=== PATIENT | female | born 1935 | race Caucasian/White ===

== ENCOUNTER 2017-09-20 11:45 | Inpatient (IN) ==
[2017-09-20] MEDS ORDERED: HYDROmorphone 2 MG/ML VIAL IV SCH (12:00)
[2017-09-20] MEDS ORDERED: HYDROmorphone 2 MG/ML VIAL IV PRN (12:08)
--- NOTE | 2017-09-20 12:21 | Emergency Department Note ---
Fall HPI - General Chief Complaint: Fall Stated Complaint: fall, L hip and wrist pain Source: patient Mode of arrival: wheelchair - History of Present Illness HPI Narrative: Fall from standing position just prior to arrival. Brought in with obvious leg length discrepancy on the left, left arm currently braced. Severe pain, 100 of fentanyl given in route, minimally effective. No loss of consciousness patient states "I just turned wrong in the kitchen". - Related Data Home Medications Medication Instructions Recorded Confirmed calcium carbonate 500 mg calcium 500 mg PO QDAY tab 08/12/15 09/20/17 (1,250 mg) tablet cholecalciferol (vitamin D3) 5,000 5,000 unit PO WEEKLY cap 09/24/15 09/20/17 unit capsule Previous Rx's Medication Instructions Recorded indapamide 2.5 mg tablet 2.5 mg PO QAM #90 tab 08/06/17 simvastatin 40 mg tablet 40 mg PO QPM #90 tab 08/24/17 Allergies Allergy/AdvReac Type Severity Reaction Status Date / Time Calcitonin Allergy Unknown Unknown Verified 09/20/17 11:55 niacin Allergy Unknown Itching Verified 09/20/17 11:55 Review of Systems All systems ED: reviewed and negative except as stated. Fall PMH - Past Medical History Attestation: Yes: The following information was validated with the patient. Medical history: Reports: hypertension Surgical history ED: Reports: other (Bladder surgery) Family history: Reports: non-contributory - Social History smoking status: Never smoker Physical Exam General appearance: in distress Head: atraumatic, normocephalic Eye: Present: normal appearance ENT: normal exam Neck: Present: normal inspection. Absent: tenderness Chest: Present: normal inspection Respiratory: Present: normal lung sounds bilaterally. Absent: respiratory distress Cardiovascular: Present: regular rate, normal rhythm Abdominal: Present: soft Extremities: Present: other (Left wrist splinted, intact distal neurovascular; left leg shortened him a intact neuro vas) Neurological: Present: alert, oriented X3 Psychiatric: Present: normal affect Course Vital Signs Temperature 97.4 F 09/20/17 11:46 Pulse Rate 67 09/20/17 11:46 Respiratory Rate 20 09/20/17 11:46 Pulse Oximetry (%) 100 09/20/17 11:46 Temperature 97.4 F 09/20/17 11:46 Pulse Rate 68 01/29/18 12:01 Respiratory Rate 20 09/20/17 12:00 Blood Pressure 119/102 09/20/17 12:01 Pulse Oximetry (%) 98 09/20/17 12:01 Procedures - Orthopedic Fracture Reduction Fracture #1 Consent Obtained: verbal consent, written consent Time Out Performed: Yes Side: left Fracture Reduction Location: other (Wrist) Analgesia: hematoma block Technique: direct manipulation (Anatomic reduction) Post-reduction neuro exam: intact Post-reduction vascular exam: intact Splint Applied: Yes Patient Tolerated Procedure: well, no complications Fall - Lab Data Result diagrams: 09/20/17 13:27 09/20/17 13:26 Disposition Pt seen by [facility]UFFER/PA only: No Clinical Impression: Colles' fracture of left radius, Hip fracture Disposition: Xfer As Inpt ([facility]) Condition: Fair Referrals: Mavis Crowder DO [Primary Care Provider] -
[2017-09-20] MEDS ORDERED: fentaNYL 100 MCG/2 ML VIAL IV ONE ×2 (13:07→16:05)
[2017-09-20] MEDS ORDERED: MIDAZOLAM 5 MG/5 ML VIAL IV ONE ×2 (13:07→16:05)
--- NOTE | 2017-09-20 13:07 | Cat Scan Report ---
History: Fell with left leg and pelvic pain and leg shortening Findings: The pelvis is imaged without contrast. Sagittal and coronal reformats were created. There is an acute comminuted intertrochanteric fracture of the left hip. There is varus angulation. The femoral neck and head are normal. Joint spaces of both hips are mildly narrowed. There is mild arthritis with subchondral cysts in both hips. These are most apparent above the roof of the right acetabulum. There is no pelvic fracture is present. Grade 1 spondylolisthesis is present at L5-S1 due to arthritis in the facets. There is moderate arthritis at the symphysis pubis. There are a few scattered diverticula in the sigmoid colon. No intrapelvic hematoma is present. The uterus and ovaries are atrophic. Impression: Intertrochanteric fracture of the left hip Dr. Bonds was called with results Interpreted and Authenticated by: Jaun Aguayo 09/20/17
--- NOTE | 2017-09-20 13:09 | XRay Report ---
HISTORY: Reason for Exam:fall, pain FINDINGS: There are acute comminuted fractures of the distal radius and ulna. There is severe deformity. The carpal bones remain aligned with the distal radius and are retracted proximally and angulated in a radial direction. There is significant overlying soft tissue swelling. Moderate arthritis is present between the trapezium and first metacarpal. There is an old ununited fracture the ulnar styloid process. IMPRESSION: Severely deformed Colles' fracture Interpreted and Authenticated by: Jaun Aguayo 09/20/17
--- NOTE | 2017-09-20 13:10 | XRay Report ---
HISTORY: Reason for Exam:Multiple Fractures FINDINGS: The lungs are clear and well expanded. The heart size and pulmonary vasculature are normal. There is no pleural effusion. The aorta is mildly tortuous. No fracture is identified. IMPRESSION: Normal chest Interpreted and Authenticated by: Jaun Aguayo 09/20/17
[2017-09-20] MEDS ORDERED: MIDAZOLAM 2 MG/2 ML VIAL ONE (13:42)
[2017-09-20 14:04] LABS: Basophils # (Auto) 0 K/mcL (0.0-0.3); Basophils % (Auto) 0.3 % (0.0-2.0); Eosinophils # (Auto) 0.3 K/mcL (0.0-0.7); Eosinophils % (Auto) 1.9 % (0.0-7.0); Granulocytes % (Auto) 78.7 % (38.0-78.0); Lymphocytes # (Auto) 1.7 K/mcL (1.5-4.8); Lymphocytes % (Auto) 12.6 % (15.5-49.0); Mean Cell Volume 88.9 fL (80.0-100.0); Mean Corpuscular HGB Conc 34.2 g/dL (31.0-36.0); Mean Corpuscular Hemoglobin 30.4 pg (26.0-34.0); Monocytes # (Auto) 0.9 K/mcL (0.1-0.9); Monocytes % (Auto) 6.5 % (1.0-12.0); Platelet Count 382 K/mcL (140-440); RBC 4.28 M/mcL (4.00-5.20); Red Cell Distribution Width 12.6 % (11.5-14.5)
[2017-09-20 14:31] LABS: ALT/SGPT 14 U/l (0-40); Albumin 3.5 gm/dL (3.2-5.2); Albumin/Globulin Ratio 1.5 (1.0-2.3); Alkaline Phosphatase 63 U/L (39-117); Blood Urea Nitrogen 12 mg/dl (8-23)
[2017-09-20] MEDS ORDERED: ceFAZolin 1 GM VIAL IV SCH (15:45)
[2017-09-20] MEDS ORDERED: DEXAMETHASONE 10 MG/ML VIAL IV ONE (16:05)
[2017-09-20] MEDS ORDERED: ONDANSETRON 4 MG/2 ML VIAL IV ONE (16:05)
[2017-09-20] MEDS ORDERED: PROPOFOL 200 MG/20 ML VIAL IV ONE (16:05)
[2017-09-20] MEDS ORDERED: GLYCOPYRROLATE 0.2 MG/ML VIAL IV ONE (16:05)
[2017-09-20] MEDS ORDERED: LIDOCAINE HCL/PF 100 MG/5 ML SYRINGE IV ONE (16:05)
[2017-09-20] MEDS ORDERED: KETAMINE 100 MG/ML ML IV ONE (16:05)
[2017-09-20] MEDS ORDERED: TRANEXAMIC ACID 1,000 MG/10 ML VIAL IV ONE (16:05)
--- NOTE | 2017-09-20 16:14 | History and Physical Report ---
DATE OF ADMISSION: 09/20/2017 IDENTIFICATION: The patient is an 82-year-old female. CHIEF COMPLAINT: 1. Left comminuted intertrochanteric hip fracture. 2. Extensively comminuted left distal radius fracture. HISTORY: The patient sustained a fall today at home. She had immediate pain and deformity, including the left distal radius and left hip. She presented to the emergency room here at [facility]. Radiographs have demonstrated a comminuted intertrochanteric hip fracture and a comminuted left distal radius fracture. These are both in need of operative treatment, and I am called for definitive management. The hospitalist have also been consulted for medical management. PAST MEDICAL HISTORY: Significant for hypercholesterolemia and hypertension. PAST SURGICAL HISTORY: She apparently had a previous bladder surgery but otherwise fairly unremarkable. MEDICATIONS: Calcium carbonate and vitamin D. ALLERGIES: 1. NIACIN produces itching. 2. CALCITONIN is an allergy that is listed but has an unknown reaction. REVIEW OF SYSTEMS: She has generally been in a good state of health and the balance of the 10-point review of systems is negative. She is scheduled to have a total knee arthroplasty next week. FAMILY HISTORY: Noncontributory. PHYSICAL EXAMINATION: GENERAL: She is awake and alert. She answers questions appropriately. HEAD: Normocephalic, atraumatic. EYES: PERRLA, conjunctiva clear. ENT: Within normal limits. NECK: Supple without pain on range of motion. HEART: Regular. LUNGS: Clear. ABDOMEN: Benign. EXTREMITIES: Left distal radius was splinted and a reduction maneuver was performed in the ER by the emergency room physician. The left lower extremity is shortened and there is malrotation. She is grossly without significant neurovascular deficit. RADIOGRAPHS: Demonstrate again an extensively comminuted fracture of both the left distal radius and the intertrochanteric region of the left hip. IMPRESSION: Fractures as above. PLAN: We will proceed with an open reduction and internal fixation of left hip. I have discussed the distal radius with Dr. Juarez. He will plan to be involved potentially at a later date. This has been discussed with the patient and her family, and they wish to proceed. GDD:sagar Job ID: [id number] Doc ID: [id number] Joshua Knutson MD
[2017-09-20] MEDS ORDERED: PROMETHAZINE 25 MG/ML VIAL IV PRN (16:26)
[2017-09-20] MEDS ORDERED: diphenhydrAMINE 50 MG/ML VIAL IV PRN (16:26)
[2017-09-20] MEDS ORDERED: FLUMAZENIL 0.1 MG/ML ML IV PRN (16:26)
[2017-09-20] MEDS ORDERED: NALOXONE HCL 0.4 MG/ML VIAL IV PRN (16:26)
[2017-09-20] MEDS ORDERED: ONDANSETRON 4 MG/2 ML VIAL IV PRN (16:26)
[2017-09-20] MEDS ORDERED: MEPERIDINE 25 MG/ML SYRINGE IV PRN (16:26)
[2017-09-20] MEDS ORDERED: ePHEDrine 50 MG/ML AMPUL IV PRN (16:26)
[2017-09-20] MEDS ORDERED: ATROPINE SULFATE 0.4 MG/ML VIAL IV PRN (16:26)
[2017-09-20] MEDS ORDERED: IPRATROPIUM/ALBUTEROL 3 ML AMPUL.NEB NEB PRN (16:26)
[2017-09-20] MEDS ORDERED: METHOCARBAMOL 1,000 MG/10 ML VIAL IV PRN (16:26)
[2017-09-20] MEDS ORDERED: fentaNYL 100 MCG/2 ML VIAL IV PRN (16:26)
[2017-09-20] MEDS ORDERED: LACTATED RINGERS 1,000 ML IV SCH (16:30)
--- NOTE | 2017-09-20 17:27 | Orthopedic Procedure Note ---
Date of procedure: Note initiated : 09/20/17 at 5:26 pm Service Date, if different from initiated Date: [] Pre-op diagnosis: L hip fx, L distal radius fx Post-op diagnosis: same Procedure: hip reduction and gamma, distal radius reduction and splint Grafts/Implants: gamma Anesthesia: JVA Surgeon: Joshua Knutson Technical Information Specialist: Gena Goldman Estimated blood loss: 200 Pathology: none sent Condition: stable Disposition: PACU
[2017-09-20] MEDS: 0.9 % SODIUM CHLORIDE 1,000 ML IV SCH ×3 (19:10→23:19)
[2017-09-20] MEDS ORDERED: METHOCARBAMOL 750 MG TABLET PO PRN (21:36)
[2017-09-20] MEDS: ENOXAPARIN 30 MG/0.3 ML SYRINGE SQ SCH (22:08)
[2017-09-20] MEDS: ceFAZolin 1 GM VIAL IV SCH (22:10)
--- NOTE | 2017-09-21 01:02 | Consultation ---
DATE OF CONSULTATION: 09/20/2017 REASON FOR CONSULTATION: Management of medical issues. PRIMARY CARE PHYSICIAN: Lg Arnold MD REASON FOR ADMISSION: Fall with hip fracture. REQUESTING PHYSICIAN: Joshua Knutson MD HISTORY OF CHIEF COMPLAINT: The patient is an 82-year-old who lives with her , Man, and was in her baseline state of health until this morning while she was in the kitchen, for some reason fell backward and landed on the floor. She attributes the fall to getting off balance. She did not lose consciousness. She was discovered by her , who subsequently called 911, and brought into [facility] ER. She was in significant pain around her left hip. She was subsequently evaluated and was found to have an intertrochanteric left hip fracture. She was taken directly to surgery. Post-surgery, hospitalist Service was consulted for management of medical issues. At the time of evaluation, the patient is immediate postop. She is drowsy, lethargic and under the effect of anesthesia. Family members, including granddaughter along with her , present in room. Most of the history was obtained from the medical records, ER physician and from . Per , patient was in her baseline state of health. She did not have any seizure activity or bladder or bowel incontinence. She did not lose consciousness. She was awake throughout the episode, lying on the floor, in pain. She did not have any prior fever, palpitation, lightheadedness, dizziness. She also did not have any recent falls or hospitalization. REVIEW OF SYSTEMS: Ten-point review of systems was performed and negative except the ones discussed above. PAST MEDICAL HISTORY: 1. Hyperlipidemia. 2. Hypertension. SURGICAL HISTORY: History of bladder surgery. FAMILY HISTORY: Noncontributory given advanced age and presenting symptoms. SOCIAL HISTORY: No history of smoking or alcoholism. Lives with her , Man. Independent. PHYSICAL EXAMINATION: GENERAL: The patient is fairly fatigued, lethargic, under the effect of anesthesia, sedated. VITAL SIGNS: Blood pressure 135/89, respiratory rate 16, temperature 97.9, pulse 89, sats 99% on 2 liters of oxygen. HEENT: Pupils sluttish. Oral cavity is dry. No ear or nose discharge. Head is normocephalic and atraumatic. NECK: No lymphadenopathy. CHEST: S1, S2, regular rhythm. ESM grade 1. Diminished breath sounds at bases. ABDOMEN: Soft. LOWER EXTREMITIES: Left hip postop dressing. UPPER EXTREMITIES: Left wrist currently in cast. SKIN: No suspicious lesions. PSYCH: Sedated, under the effect of anesthesia. NEURO: Could not be performed. LABS AND IMAGING: White count 13.7, hemoglobin 13, INR 1. Sodium 130, potassium 3.3, creatinine 0.3, BUN 12. EKG: Sinus rhythm. CT hip: Left intertrochanteric fracture. X-ray wrist: Severely deformed left Colles fracture. X-ray chest: Normal. ASSESSMENT AND PLAN: An 82-year-old admitted by orthopedics for left hip repair and left wrist fracture. Hospitalist service consulted for management of medical issues. 1. Left hip and left wrist fracture, status post surgery and reduction. The patient will be managed as per orthopedics. Postop care including pain management and deep venous thrombosis prophylaxis per orthopedics. 2. History of hypertension. Continue indapamide 3. History of hyperlipidemia. Continue statin. PLAN: 1. Continue medical management as above. 2. Postoperative care and DVT prophylaxis/pain management as per orthopedics. Moderate complexity consult. AA:dinh Job ID: [id number] Doc ID: [id number] Yannick Lujan MD
[2017-09-21] MEDS: ceFAZolin 1 GM VIAL IV SCH ×3 (06:02→21:20)
--- NOTE | 2017-09-21 07:19 | Orthopedic Progress Note ---
Subjective Patient information: Note initiated : 09/21/17 at 7:17 am Service Date, if different from initiated Date: [] Patient: Kateryna Oconnor 82 y/o F admitted on 09/20/17 for Fall, Lt Hip/Wrist Pain. Chief Complaint: [S/P ORIF of left hip, left displaced and angulated distal radius fx with reduction and splinting] Patient is doing well and really has no complaints other than mild left wrist pain. She denies any SOA, chest pain, or calf tenderness. She has no ambulated since sx. Objective Vital signs: Vital Signs Temp Pulse Pulse Resp BP BP Pulse Ox 09/21/17 04:00 98.1 F 85 12 119/71 96 09/21/17 00:00 97.6 F 96 H 14 106/67 96 09/20/17 21:19 98.0 F 86 16 109/68 93 09/20/17 20:20 93 H 110/55 95 09/20/17 20:13 95 09/20/17 19:50 87 110/52 96 09/20/17 19:19 83 112/70 96 09/20/17 19:04 83 113/72 97 09/20/17 18:49 81 118/75 98 09/20/17 18:34 79 116/72 98 09/20/17 18:25 97.9 F 89 16 135/89 99 09/20/17 18:20 90 125/65 98 09/20/17 17:55 97.9 F 85 16 135/89 100 09/20/17 17:50 97.9 F 86 16 140/56 95 09/20/17 17:40 97.9 F 91 H 16 99/64 91 09/20/17 14:20 66 121/76 97 09/20/17 12:01 68 119/102 98 09/20/17 12:00 20 09/20/17 11:59 68 107/76 93 09/20/17 11:46 97.4 F 67 20 100 Intake and Output 09/20/17 09/21/17 09/21/17 21:59 05:59 13:59 Intake Total 2800 / 2800 150 / 150 Output Total 350 / 350 725 / 725 Balance 2450 / 2450 -575 / -575 Intake: Oral 150 / 150 IV - Manual Only 2800 / 2800 Output: Urine Catheter Amount 575 / 575 Void Amount 350 / 350 150 / 150 Other: Weight 120 lb 4.8 oz Intake & Output: Intake & Output 09/20/17 09/21/17 09/21/17 21:59 05:59 13:59 Intake Total 2800 / 2800 150 / 150 Output Total 350 / 350 725 / 725 Balance 2450 / 2450 -575 / -575 Weight 120 lb 4.8 oz Intake: Oral 150 / 150 IV - Manual Only 2800 / 2800 Output: Urine Catheter Amount 575 / 575 Void Amount 350 / 350 150 / 150 Incision: Yes healing, Yes clean and dry Incision clean and dry: Yes Dressing: Yes clean, Yes dry, Yes intact Weight bearing status: non (TTWB on LLE) Neurological exam IM: Yes oriented X3, Yes motor sensory intact, Yes neurovascular intact Extremities exam IM: Yes normal inspection, Yes Foot pink and warm, Yes neurovascular intact - Labs CBC & BMP: 09/20/17 13:27 09/20/17 13:26 Labs: Orthopedic Labs 09/20/17 13:27 PT 14.1 INR 1.1 09/20/17 13:27 Hgb 13.0 Hct 38.0 Assessment and Plan (1) Colles' fracture of left radius Remain in splint until ORIF of left wrist with Dr. Juarez. Continue neurovascular checks on LUE. Status: Acute (2) Hip fracture TTWB on LLE. May be up with PT and utilize wheelchair. Status: Acute
--- NOTE | 2017-09-21 07:36 | Operative Note ---
DATE OF OPERATION: 09/20/2017 PREOPERATIVE DIAGNOSES: 1. Left intertrochanteric hip fracture. 2. Left distal radius fracture, both with marked comminution. POSTOPERATIVE DIAGNOSES: 1. Left intertrochanteric hip fracture. 2. Left distal radius fracture, both with marked comminution. OPERATION PROPOSED: 1. Reduction and internal fixation left intertrochanteric hip fracture. 2. Closed reduction and splinting left distal radius fracture. OPERATION PERFORMED: 1. Reduction and internal fixation left intertrochanteric hip fracture. 2. Closed reduction and splinting left distal radius fracture. OPERATING SURGEON: Joshua Knutson MD TALKBACK HOST: Gena Goldman PA-C INDICATIONS: This is an elderly lady who has an intertrochanteric hip fracture which was markedly displaced in need of operative fixation. She also has a distal radius fracture which is very markedly displaced and comminuted. A reduction maneuver was performed by the ER physician, but no post-reduction x-rays obtained. Post-reduction radiographs in the operating room while in the ER splint show suboptimal reduction. OPERATION IN DETAIL: Informed consent was obtained. The patient was taken to the operating room where she was provided with appropriate anesthetic and prophylactic antibiotics. She was carefully positioned. The C-arm was brought in and I imaged her left distal radius. It was felt to be in a suboptimal position for splinting. As such, the splint was removed. The best possible reduction was obtained and a sugar tong splint applied. I have discussed this with Dr. Juarez. There is consideration for additional open reduction and internal fixation. Attention was then turned to the left hip. She was placed on the fracture table. The hip was reduced. An incision was made proximal to the tip of the greater trochanter. I entered the tip of the greater trochanter with a 3.2 mm guidewire and advanced this antegrade into the femoral shaft. I then used the opening reamer. A long guidewire was applied and I reamed the canal to a size 12 mm. I selected a long gamma nail, 10 mm in diameter. This was advanced into the femoral shaft. I then reamed the lateral cortex with a drill, I advanced a 3.2 mm guidewire retrograde across the fracture and then reamed and placed hip bolt. I did compress slightly, I activated the locking bolt, locking this into position. I then placed perfect circles distally in the femoral shaft. A locking screw was applied. The wounds were irrigated thoroughly and I closed with an 0 Vicryl in interrupted fashion, 2-0 Vicryl inverted deep dermal, and brendan. The procedure was tolerated well. No complications. Estimated blood loss 200 mL. GDD:kristen Job ID: [id number] Doc ID: [id number] Joshua Knutson MD
[2017-09-21] MEDS: ENOXAPARIN 30 MG/0.3 ML SYRINGE SQ SCH ×2 (09:20→21:18)
[2017-09-21 10:12] LABS: Mean Corpuscular HGB Conc 33.8 g/dL (31.0-36.0); Mean Corpuscular Hemoglobin 30.4 pg (26.0-34.0); Platelet Count 370 K/mcL (140-440); RBC 3.96 M/mcL (4.00-5.20); Red Cell Distribution Width 12.3 % (11.5-14.5)
[2017-09-21 10:47] LABS: Band Neutrophils % 1 % (0-10); Lymphocytes % 10 % (15-49); Monocytes % (Manual) 6 % (1-12); Platelet Estimate NORMAL (NORMAL); RBC Morphology NORMAL (NORMAL); Segmented Neutrophils % 83 % (38-78)
[2017-09-21 10:50] LABS: Blood Urea Nitrogen 9 mg/dl (8-23); Uric Acid 4.8 mg/dL (2.5-8.0)
[2017-09-21 10:51] LABS: ALT/SGPT 13 U/l (0-40); Albumin 3.4 gm/dL (3.2-5.2); Albumin/Globulin Ratio 1.4 (1.0-2.3); Alkaline Phosphatase 57 U/L (39-117); Bilirubin,Direct < 0.2 mg/dL (0.0-0.3); Gamma Glutamyl Transpeptidase 10 U/L (5-36)
[2017-09-21] MEDS: 0.9 % SODIUM CHLORIDE 1,000 ML IV SCH (15:18)
[2017-09-21] MEDS: HYDROCODONE/APAP 7.5/325MG TABLET PO PRN (18:48)
--- NOTE | 2017-09-21 19:48 | Consultation ---
DATE OF CONSULTATION: 09/21/2017 DATE OF EVALUATION AND DICTATION: 09/21/2017 REFERRING PHYSICIAN: Joshua Knutson MD CHIEF COMPLAINT: Left wrist pain, swelling, loss of motion and function. HISTORY: The patient is an 82-year-old, [id number] white female who several days ago sustained a fall, landing on her left side with pain, swelling, loss of motion in her hip and her wrist. The patient was diagnosed with a distal radius fracture on the left and a hip fracture. The patient has subsequently undergone an open reduction and internal fixation of the left hip fracture and a closed reduction and splinting of the left wrist fracture, but with continued pain, loss of motion and function. PAST MEDICAL HISTORY: Significant for benign paroxysmal positional vertigo, dyspnea, esophageal stricture, fibrocystic breast disease, hyperlipidemia, hypertension, leukocytosis, osteoporosis, and thrombocytosis. PAST SURGICAL HISTORY: The patient is status post a bladder surgery, colonoscopy, and an open reduction and internal fixation of the left hip fracture. MEDICATIONS: Calcium carbonate 500 mg daily. Calciferol 12,000 units by mouth weekly. Indapamide 2.5 mg daily. Simvastatin 40 mg daily. ALLERGIES: The patient has allergies to CALCITONIN and NIACIN. SOCIAL HISTORY: Presently the patient is retired but enjoys home activities and hobbies and lives independently with her . REVIEW OF SYSTEMS: Presently the patient denies any headaches, no vision changes, no nausea, vomiting, fevers, chills, no shortness of breath, no wheezing, no chest pain, no abdominal pain, no abnormal bruising or bleeding, and no blood in the urine or blood in the stool. PHYSICAL EXAMINATION: VITAL SIGNS: Include a pulse of 85 that is regular, respiratory rate 12, blood pressure 119/71 and a temperature of 98.1 degrees. SKIN: Her bilateral upper extremities do not demonstrate any skin breakdown, macerations, lacerations, ulcers, or lesions. She does demonstrate significant ecchymosis and edema on the volar and dorsal aspect of the wrist, but no open wounds or lesions noted. EXTREMITIES: Her left upper extremity demonstrates a shoulder and elbow without any deformities. She has elbow flexion from 0 to 145 degrees. No instability with varus or valgus stressing at 0 or 30 degrees of flexion. Negative Tinel's at the cubital tunnel. She has limited range of motion of the wrist with a splint intact. Her fingers have good capillary refill and respond to light touch and able to actively flex and extend all of her fingers and her thumb. Her right upper extremity demonstrates shoulder, elbow, wrist, and hand without any deformities and nontender to palpation, full range of motion, and neurovascularly intact distally. GAIT: The patient is nonambulatory secondary to her left hip fracture. IMAGING: Plain radiographs, AP, lateral, and oblique views, of the left wrist, interpreted by myself, demonstrate a comminuted intra-articular distal radial metaphyseal fracture with significant apex volar angulation and collapse with the articular surface reduced at the distal radius and with subluxation volarly of the distal radial ulnar joint. ASSESSMENT: The patient is status post a fall onto her left wrist and hip, now with a comminuted intra-articular distal radial metaphyseal fracture with improved alignment but significant comminution, demonstrating an unstable fracture pattern. RECOMMENDATIONS: 1. Due to the fact the patient now demonstrates this comminuted intra-articular left distal metaphyseal fracture with unstable fracture pattern, I would recommend operative intervention. 2. The patient will be scheduled for open reduction and internal fixation of the comminuted intra-articular left distal radial metaphyseal fracture. 3. The patient and family were counseled on the risks and benefits of surgery; the risks to include but not limited to infection, bleeding, nerve or vessel damage, persistent pain, numbness, stiffness, weakness, loss of motion, loss of function, angular rotation deformities, collapse, persistent pain, nonunions, malunions, reoperation, and potential for amputation. The patient and family verbalized that they understood the proposed procedure with the associated risks and benefits and consented. 4. The patient will be scheduled for surgery at [facility] on 09/22/2017. 5. The patient will stop her Lovenox after her dose tonight and we will restart as per the hospitalist's recommendations tomorrow. 6. The patient will be nothing by mouth for solid food after midnight tonight with clear liquids up until 5:00 in the morning tomorrow morning. MATTHEW:era Job ID: [id number] Doc ID: [id number] Bala HENDERSON
--- NOTE | 2017-09-22 00:25 | Internal Med Progress Note ---
Medical - PN: Subj Patient information: Note initiated : 09/21/17 at 12:15 pm Patient: Kateryna Oconnor 82 y/o F admitted on 09/20/17 for Fall/Colles' Fracture of Left Radius, Hip Fracture. Chief Complaint: [] Interval history: 09/20 patient admitted by orthopedics after fall sustaining left hip and left wrist fracture. Hospitalist consult for management of medical issues. Patient underwent operative intervention with left hip fracture repair. Reviewed postoperatively. Weaning well. 09/21-patient recovering well from hip surgery. wrist fracture will be addressed by Dr. Esposito orthopedics on 09/22. No overnight fever chills. Tolerating diet. Was able to transfer out of bed to chair. In good spirits. No family at bedside. No concerns per staff - Constitutional Vitals: Vital Signs Temp Pulse Resp BP Pulse Ox 98.2 F 73 10 L 104/58 93 09/21/17 23:35 09/21/17 23:35 09/21/17 23:35 09/21/17 23:35 09/21/17 23:35 Period Temp Pulse Resp BP Sys/Springer Pulse Ox Last 24 Hr 97.5 F-98.8 F 73-86 10-16 104-128/52-71 90-97 Intake and Output 09/21/17 09/21/17 09/22/17 13:59 21:59 05:59 Intake Total 600 / 600 1000 / 1000 Output Total 650 / 650 875 / 875 Balance -50 / -50 125 / 125 Weight 120 lb 4.8 oz 123 lb 8 oz Patient Weight 09/22/17 05:59 Weight 123 lb 8 oz Intake & Output: Intake & Output 09/21/17 09/21/17 09/22/17 13:59 21:59 05:59 Intake Total 600 / 600 1000 / 1000 Output Total 650 / 650 875 / 875 Balance -50 / -50 125 / 125 Weight 120 lb 4.8 oz 123 lb 8 oz Intake: IV 1000 / 1000 Sodium Chloride 0.9% 1,000 ml @ 1000 / 1000 50 mls/hr IV .Q20H [facility] Rx#: [id number] Oral 600 / 600 Output: Urine Catheter Amount 650 / 650 875 / 875 Other: Meal Breakfast Dinner Percent of Meal Consumed 75% 75% Feeding Ability Independent Independent General appearance: cooperative, no acute distress Exam: alert no anxiety Nonlabored breathing Left hip dressing, no fluctuation or swelling around surgery site left wristin cast Medical - PN: Obj Da - Labs CBC & Chem 7: 09/22/17 04:32 09/22/17 04:32 Labs: Abnormal Lab Results 09/21/17 09/21/17 09/20/17 08:37 08:37 13:27 WBC 14.0 H 13.7 H RBC 3.96 L Hct 35.7 L MPV 7.2 L 6.7 L Gran % 78.7 H Lymph % (Auto) 12.6 L Gran # 10.8 H Seg Neutrophils % 83 H Lymphocytes % 10 L Potassium 3.2 L Glucose 164 H Calcium Total Protein 09/20/17 13:26 WBC RBC Hct MPV Gran % Lymph % (Auto) Gran # Seg Neutrophils % Lymphocytes % Potassium Glucose 108 H Calcium 8.2 L Total Protein 5.8 L Meds: Medications Hydrocodone Bitart/Acetaminophen ([place] 7.5/325mg) 1 - 2 tab PO Q4HP PRN PRN Reason: PAIN LEVEL 3-6 Last Admin: 09/21/17 18:48 Dose: 1 tab Cefazolin Sodium (Ancef) 1 gm IV Q8H [facility] Last Admin: 09/21/17 21:20 Dose: 1 gm Enoxaparin Sodium (Lovenox) 30 mg SQ BID [facility] Last Admin: 09/21/17 21:18 Dose: 30 mg Sodium Chloride (Sodium Chloride 0.9%) 1,000 mls @ 50 mls/hr IV .Q20H [facility] Stop: 09/22/17 11:14 Last Admin: 09/21/17 15:18 Dose: 50 mls/hr Methocarbamol (Robaxin) 750 mg PO Q6HP PRN PRN Reason: Muscle Spasm Medical - PN: A/P - Time Spent With Patient Total time spent is greater than 50% in coordination of care (as documented) at patient's floor/unit and/or counseling patient: 15 - 24 minutes - Narrative A/P Narrative: * Left hip fracture status post repair postop day one managed by orthopedics * Left wrist fracture-ill undergo surgical intervention by Dr. Esposito orthopedics on 09/22 * Pain management per orthopedics * DVT prophylaxis on Lovenox-held by orthopedics for surgery hospitalist consult * History of hypertension continue indapamide * hyperlipidemia on statin * hold lovenox * review postop Medical - PN: Qual - VTE Deep Vein Thrombosis/Pulmonary Embolism Present on Admission: No
[2017-09-22] MEDS: HYDROCODONE/APAP 7.5/325MG TABLET PO PRN (06:05)
[2017-09-22] MEDS: ceFAZolin 1 GM VIAL IV SCH ×3 (06:07→21:44)
[2017-09-22 07:10] LABS: Mean Corpuscular HGB Conc 33.9 g/dL (31.0-36.0); Mean Corpuscular Hemoglobin 30.5 pg (26.0-34.0); Platelet Count 294 K/mcL (140-440); RBC 3.04 M/mcL (4.00-5.20); Red Cell Distribution Width 12.4 % (11.5-14.5)
[2017-09-22 08:05] LABS: ALT/SGPT 10 U/l (0-40); Albumin 2.7 gm/dL (3.2-5.2); Albumin/Globulin Ratio 1.2 (1.0-2.3); Alkaline Phosphatase 52 U/L (39-117); Bilirubin,Direct < 0.2 mg/dL (0.0-0.3); Blood Urea Nitrogen 13 mg/dl (8-23); Gamma Glutamyl Transpeptidase 9 U/L (5-36); Uric Acid 4.1 mg/dL (2.5-8.0)
[2017-09-22] MEDS: ENOXAPARIN 30 MG/0.3 ML SYRINGE SQ SCH ×2 (08:20→21:44)
--- NOTE | 2017-09-22 08:21 | Internal Med Progress Note ---
Medical - PN: Subj Patient information: Note initiated : 09/22/17 at 8:18 am Service Date, if different from initiated Date: [] Patient: Kateryna Oconnor 82 y/o F admitted on 09/20/17 for Fall/Colles' Fracture of Left Radius, Hip Fracture. Chief Complaint: [] Interval history: 09/20 patient admitted by orthopedics after fall sustaining left hip and left wrist fracture. Hospitalist consult for management of medical issues. Patient underwent operative intervention with left hip fracture repair. Reviewed postoperatively. Weaning well. 09/21-patient recovering well from hip surgery. wrist fracture will be addressed by Dr. Esposito orthopedics on 09/22. No overnight fever chills. Tolerating diet. Was able to transfer out of bed to chair. In good spirits. No family at bedside. No concerns per staff 09/22- patient due for wrist surgery today. No overnight events. no fever chills or significant pain.. No family at bedside. no anxiety - Constitutional Vitals: Vital Signs Temp Pulse Resp BP Pulse Ox 97.9 F 75 14 105/53 90 09/22/17 07:43 09/22/17 07:43 09/22/17 07:43 09/22/17 07:43 09/22/17 07:43 Period Temp Pulse Resp BP Sys/Springer Pulse Ox Last 24 Hr 97.7 F-98.8 F 73-86 10-16 97-128/51-67 90-97 Intake and Output 09/21/17 09/22/17 09/22/17 21:59 05:59 13:59 Intake Total 1000 / 1000 550 / 550 Output Total 875 / 875 275 / 275 Balance 125 / 125 275 / 275 Weight 123 lb 8 oz Intake & Output: Intake & Output 09/21/17 09/22/17 09/22/17 21:59 05:59 13:59 Intake Total 1000 / 1000 550 / 550 Output Total 875 / 875 275 / 275 Balance 125 / 125 275 / 275 Weight 123 lb 8 oz Intake: IV 1000 / 1000 Sodium Chloride 0.9% 1,000 ml @ 1000 / 1000 50 mls/hr IV .Q20H [facility] Rx#: [id number] Oral 550 / 550 Output: Urine Catheter Amount 875 / 875 275 / 275 Other: Meal Dinner Percent of Meal Consumed 75% Feeding Ability Independent General appearance: cooperative, no acute distress Exam: onlabored breathing no anxiety Nondistended abdomen no lymphedema Medical - PN: Obj Da - Labs CBC & Chem 7: 09/22/17 04:32 09/22/17 04:32 Labs: Abnormal Lab Results 09/22/17 09/22/17 09/21/17 04:32 04:32 08:37 WBC 14.6 H RBC 3.04 L Hgb 9.3 L Hct 27.4 L MPV 7.2 L Gran % Lymph % (Auto) Gran # Seg Neutrophils % Lymphocytes % Potassium 3.2 L Creatinine 0.5 L Glucose 164 H Calcium 8.3 L Total Protein 4.9 L Albumin 2.7 L 09/21/17 09/20/17 09/20/17 08:37 13:27 13:26 WBC 14.0 H 13.7 H RBC 3.96 L Hgb Hct 35.7 L MPV 7.2 L 6.7 L Gran % 78.7 H Lymph % (Auto) 12.6 L Gran # 10.8 H Seg Neutrophils % 83 H Lymphocytes % 10 L Potassium Creatinine Glucose 108 H Calcium 8.2 L Total Protein 5.8 L Albumin Meds: Medications Hydrocodone Bitart/Acetaminophen (Robinson 7.5/325mg) 1 - 2 tab PO Q4HP PRN PRN Reason: PAIN LEVEL 3-6 Last Admin: 09/22/17 06:05 Dose: 1 tab Cefazolin Sodium (Ancef) 1 gm IV Q8H [facility] Last Admin: 09/22/17 06:07 Dose: 1 gm Enoxaparin Sodium (Lovenox) 30 mg SQ BID [facility] Last Admin: 09/21/17 21:18 Dose: 30 mg Sodium Chloride (Sodium Chloride 0.9%) 1,000 mls @ 50 mls/hr IV .Q20H [facility] Stop: 09/22/17 11:14 Last Admin: 09/21/17 15:18 Dose: 50 mls/hr Methocarbamol (Robaxin) 750 mg PO Q6HP PRN PRN Reason: Muscle Spasm Medical - PN: A/P - Time Spent With Patient Total time spent is greater than 50% in coordination of care (as documented) at patient's floor/unit and/or counseling patient: 15 - 24 minutes - Narrative A/P Narrative: * Left hip fracture status post repair. Stable postop day 2 managed by orthopedics. * Left wrist Colle fracture-surgery today by Dr. Esposito orthopedics * Pain management per orthopedics * DVT prophylaxis on Lovenox-held by orthopedics for surgery. hospitalist consult * History of hypertension continue indapamide. systolics between 130 to 150 * hyperlipidemia on statin * hold lovenox * review postop * PT OT * anticipate SNF transfer Medical - PN: Qual - VTE Deep Vein Thrombosis/Pulmonary Embolism Present on Admission: No
[2017-09-22 08:46] LABS: Band Neutrophils % 2 % (0-10); Lymphocytes % 26 % (15-49); Monocytes % (Manual) 4 % (1-12); Platelet Estimate NORMAL (NORMAL); RBC Morphology NORMAL (NORMAL); Segmented Neutrophils % 68 % (38-78)
[2017-09-22] MEDS ORDERED: CALCIUM (OYSTER SHELL) 500 MG TABLET PO SCH (09:00)
[2017-09-22] MEDS ORDERED: INDAPAMIDE 2.5 MG TABLET PO SCH (09:00)
[2017-09-22] MEDS ORDERED: 0.9 % SODIUM CHLORIDE 1,000 ML IV SCH ×2 (12:15→18:54)
[2017-09-22] MEDS ORDERED: MIDAZOLAM 2 MG/2 ML VIAL IV ONE (14:55)
[2017-09-22] MEDS ORDERED: DEXAMETHASONE 10 MG/ML VIAL IV ONE (14:55)
[2017-09-22] MEDS ORDERED: BUPIVACAINE W/EPI 0.5% 50 ML VIAL IJ ONE (14:55)
[2017-09-22] MEDS ORDERED: LIDOCAINE HCL/PF 100 MG/5 ML SYRINGE IV ONE (14:55)
[2017-09-22] MEDS ORDERED: KETAMINE 100 MG/ML ML IV ONE (14:55)
[2017-09-22] MEDS ORDERED: GLYCOPYRROLATE 0.2 MG/ML VIAL IV ONE (14:55)
[2017-09-22] MEDS ORDERED: PROPOFOL 200 MG/20 ML VIAL IV ONE (14:55)
[2017-09-22] MEDS ORDERED: ONDANSETRON 4 MG/2 ML VIAL IV ONE (14:55)
[2017-09-22] MEDS ORDERED: fentaNYL 100 MCG/2 ML VIAL IV ONE (14:55)
[2017-09-22] MEDS ORDERED: HYDROmorphone 2 MG/ML VIAL IV PRN ×2 (17:19→18:54)
[2017-09-22] MEDS ORDERED: BENZOCAINE/MENTHOL 1 LOZENGE PO PRN ×2 (17:19→18:54)
--- NOTE | 2017-09-22 17:29 | Brief Operative Note ---
Date of procedure: 09/22/17 Pre-op diagnosis: Left comminuted intra-articular distal radius and ulna fractures Post-op diagnosis: same Procedure: 1. Open reduction and internal fixation of the left wrist comminuted intra- articular distal radius fracture 2. Closed reduction and percutaneous fixation of the left wrist comminuted intra-articular distal ulna fracture Grafts/Implants: Yes ((1) [employer] volar plate, (4) 3.5 mm screws, (6) 2.4 pegs,(2)6.2kwi) Anesthesia: GLMA Findings: As above Complications: none Surgeon: Bala Juarez Icer Machine Operator: Jessica Blair Estimated blood loss (cc): 15 Tourniquet Time (Minutes): 99 Specimens Removed/Pathology: none sent Condition: stable Disposition: PACU
[2017-09-22] MEDS ORDERED: POTASSIUM CHLORIDE 20 MEQ/15 ML ML PT SCH (17:30)
--- NOTE | 2017-09-22 18:03 | XRay Report ---
HISTORY: Reason for Exam:Post-Op repair fractured wrist FINDINGS: The wrist and forearm are encased in a plaster cast which obscures fine bone detail. There is a comminuted intra-articular fracture the distal radius. This is held in good alignment using a metal plate and multiple screws located along the volar surface of the radius. The articular surface of the radius is slightly angulated in a volar direction. There are also two pins placed through the ulnar styloid process into the neck of the ulna. The fractured ulna is in good alignment. The foreshortening and severe angulation deformity seen preoperatively have been corrected. IMPRESSION: Good alignment following open reduction internal fixation of the comminuted Colles' fracture Interpreted and Authenticated by: Jaun Aguayo 09/22/17
[2017-09-22] MEDS ORDERED: HYDROCODONE/APAP 7.5/325MG TABLET PO PRN (18:54)
[2017-09-22] MEDS ORDERED: METHOCARBAMOL 750 MG TABLET PO PRN (18:54)
[2017-09-22] MEDS ORDERED: SIMVASTATIN 40 MG TABLET PO SCH ×2 (21:00)
[2017-09-22] MEDS: 0.9 % SODIUM CHLORIDE 10 ML SYRINGE IV SCH (21:49)
[2017-09-22] MEDS ORDERED: 0.9 % SODIUM CHLORIDE 10 ML SYRINGE IV SCH (22:00)
[2017-09-23] MEDS: ceFAZolin 1 GM VIAL IV SCH (05:03)
[2017-09-23] MEDS: 0.9 % SODIUM CHLORIDE 10 ML SYRINGE IV SCH (05:08)
[2017-09-23 06:38] LABS: Mean Cell Volume 90.6 fL (80.0-100.0); Mean Corpuscular HGB Conc 33.6 g/dL (31.0-36.0); Mean Corpuscular Hemoglobin 30.5 pg (26.0-34.0); Platelet Count 257 K/mcL (140-440); RBC 2.81 M/mcL (4.00-5.20); Red Cell Distribution Width 12.3 % (11.5-14.5)
[2017-09-23 06:58] LABS: ALT/SGPT 8 U/l (0-40); Albumin 2.6 gm/dL (3.2-5.2); Albumin/Globulin Ratio 1.1 (1.0-2.3); Alkaline Phosphatase 54 U/L (39-117); Bilirubin,Direct < 0.2 mg/dL (0.0-0.3); Blood Urea Nitrogen 8 mg/dl (8-23); Gamma Glutamyl Transpeptidase 9 U/L (5-36); Uric Acid 3.1 mg/dL (2.5-8.0)
--- NOTE | 2017-09-23 07:55 | Operative Note ---
DATE OF OPERATION: 09/22/2017 PREOPERATIVE DIAGNOSES: 1. Left wrist comminuted intraarticular distal radial metaphyseal fracture. 2. Left wrist comminuted intraarticular distal ulnar metaphyseal fracture. POSTOPERATIVE DIAGNOSES: 1. Left wrist comminuted intraarticular distal radial metaphyseal fracture. 2. Left wrist comminuted intraarticular distal ulnar metaphyseal fracture. PROCEDURES: 1. Open reduction and internal fixation of the left wrist comminuted intraarticular distal radial metaphyseal fracture. 2. Closed reduction and percutaneous pin fixation of the left wrist comminuted intraarticular distal ulnar metaphyseal fracture. SURGEON: Bala Juarez MD. GATE SUPERVISOR: Jessica Blair RN ANESTHESIA: General with laryngeal mask. ESTIMATED BLOOD LOSS: 15 mL DRAINS: None. SPECIMENS: None. COMPLICATIONS: None. FINAL SPONGE COUNT: Correct. TOTAL TOURNIQUET TIME: 99 minutes. INDICATION: The patient is an 82-year-old right hand dominant white female status post a fall onto her outstretched left wrist and hand with pain, swelling, loss of motion and function. Her physical examination demonstrates significant ecchymosis and edema, significant apex volar angulation with limited range of motion. Her plain radiographs demonstrated comminuted intraarticular distal radial and ulnar metaphyseal fractures with collapse and apex volar angulation demonstrating an unstable fracture pattern. The patient and family verbalized that they understood the proposed procedure with the associated risks and benefits and consented. PROCEDURE: The patient was taken to the operating room suite and placed supine on the operating room table. Next, general anesthesia was attained with laryngeal mask. After adequate anesthesia was verified, a tourniquet was placed on the proximal aspect of her left arm and the left upper extremity was then sterilely prepped and draped in the usual fashion. With the use of mini C-arm, the fracture was then placed in a reduced position. We were able to get the reduced fracture, but not able to maintain the reduction at which time an open procedure was indicated. Next, the bony landmarks were identified to include the radial and ulnar styloids, Kathleen's tubercle. The radial artery was palpated and marked as well as the flexor carpi radialis tendon. Next, about a 12 cm incision was drawn beginning at the volar wrist crease and extending proximally in line with the flexor carpi radialis tendon sheath. After this demonstrated to be in good position, the left upper extremity was exsanguinated and the tourniquet was inflated to 280 mmHg. Next, the afore marked incision was made beginning at the volar wrist crease and extending proximally approximately 10 cm in line with the flexor carpi radialis tendon sheath. Sharp dissection was taken down through the skin into the subcutaneous tissues and the subcutaneous tissues were bluntly divided. Hemostasis was obtained with electrocautery. Next, blunt dissection was taken down until the roof of the flexor carpi radialis tendon sheath was identified. After this was identified, the sheath was incised and the flexor carpi radialis was then retracted out of the sheath. The floor of the flexor carpi radialis tendon sheath was identified and incised in line as well. After this was completed, blunt dissection was taken down until the pronator quadratus was identified. The flexor carpi radialis tendon, the flexor tendons of the hand and fingers and the median nerve were retracted ulnarly and the radial artery retracted radially. At this time, there was seen to be significant damage to the pronator quadratus as well as multiple fracture fragments in the volar aspect of the wrist. Next, the pronator quadratus was incised and subperiosteally dissected in a radial ulnar direction at the level of the volar wrist ligaments. After this was completed, there were multiple fracture fragments that were identified. These were then meticulously dissected free of hematoma and removed. The brachioradialis was then sharply dissected off the radial styloid for mobilization. Next, after this was completed, the distal radius was placed in a reduced position. There was seen to be good overall alignment but unable to maintain the reduction because of the comminution, at which time a [employer] 4-hole narrow plate was then placed on the volar aspect of the distal radius and provisionally held in position with K-wires. The fracture was then reduced to the plate and held provisionally with two K-wires as well. After this was completed, the mini C-arm demonstrated excellent overall position of the plate and of the fracture in the AP and lateral. After copious irrigation, the third most distal hole on the longitudinal portion of the plate was then drilled with 2.5 mm drill and a 3.5 fully threaded cortical screw was then placed, securing the plate to the proximal aspect of the radius. Next, with the fracture being held out to length and good overall positioning the second most ulnar hole on the proximal transverse row was then drilled with a 2.0 mm drill and 2.4 partially threaded peg was then placed securing the fracture to the plate. The remaining three holes of the proximal transverse row were then drilled with a 2.0 mm drill and a 2.4 partially threaded peg was then placed. All four K-wires were removed and there was seen to be excellent overall alignment with maintenance of the height of the radius with maintenance of radial inclination and volar tilt. After copious irrigation, the remaining three holes on the longitudinal portion of the plate were then drilled with a 2.5 mm drill and 3.5 fully-threaded cortical screw was then placed securing the proximal portion of the plate and the remaining two holes on the distal transverse row were then drilled with a 2.0 mm drill and 2.4 partially threaded pegs were then placed locking into the plate with excellent maintenance of alignment, with excellent maintenance of radial height, radial inclination, and volar tilt with excellent articular congruity. After this was completed, there was seen to be excellent positioning verified with mini C-arm in the AP and lateral. After copious irrigation, 10 mL of cortical granular allograft and 5 mL DBX bone graft were then mixed with some autogenous blood and packed into the bony defect region with excellent fill of the fracture site. After copious irrigation a final time, the pronator quadratus was then reapproximated with 3-0 Vicryl interrupted sutures. The flexor carpi radialis tendon sheath was then reapproximated with a 4-0 Vicryl in interrupted sutures. The subcutaneous tissue was then closed with a 4-0 Vicryl in interrupted sutures and the skin was then closed with 4-0 nylon in a running suture. The tourniquet was released. There was seen to be excellent recovery of the blood flow to the hand with pinking of all the fingers and the thumb. Our attention was then turned to the distal ulnar fracture. With the use of the mini C-arm and manipulation, the fracture was then placed in a reduced position. A 0.062 K-wire was then placed over the ulnar styloid and passed into the distal aspect of the fracture across the fracture site and down the intramedullary canal of the ulnar shaft with excellent maintenance of alignment of the ulnar fracture. A second 0.062 K-wire was placed more radially at the distal ulna passed intramedullary across the fracture and out the more volar ulnar aspect of the ulnar shaft with excellent fixation of the fracture which was verified with the mini C-arm with reduction of the distal radial ulnar joint. After this was completed and the mini C-arm demonstrated excellent positioning of the volar wrist plate and the two K-wires with maintenance of radial height, radial inclination, and volar tilt as well as the distal radial ulnar joint reduction, the K-wire was then bent and cut short. A sterile Xeroform placed on the incision site and the K-wire sites. Jurgan pinballs were applied. Next, a bulky elbow, forearm, wrist, and hand dressing was applied and a sugar-tong splint was applied with the elbow flexed in 90 degrees and a neutral rotation. The patient was then awakened and transferred to the [facility] and to recovery room in stable condition. The patient tolerated the procedure well. Estimated blood loss was 15 mL. Drains were none. Specimens were none. Complications were none. Final sponge count was correct and there was a total tourniquet time of 99 minutes. SRB:kristen Job ID: [id number] Doc ID: [id number] Bala Juarez MD
[2017-09-23] MEDS ORDERED: POTASSIUM CHLORIDE 20 MEQ/15 ML ML PT SCH (08:00)
[2017-09-23 08:24] LABS: Lymphocytes % 7 % (15-49); Monocytes % (Manual) 6 % (1-12); Platelet Estimate NORMAL (NORMAL); RBC Morphology NORMAL (NORMAL); Segmented Neutrophils % 87 % (38-78)
[2017-09-23] MEDS ORDERED: INDAPAMIDE 2.5 MG TABLET PO SCH (09:00)
[2017-09-23] MEDS ORDERED: CALCIUM (OYSTER SHELL) 500 MG TABLET PO SCH (09:00)
[2017-09-23] MEDS: ENOXAPARIN 30 MG/0.3 ML SYRINGE SQ SCH (09:01)
--- NOTE | 2017-09-23 12:25 | Discharge Summary ---
Medical - DS: Prov Patient information: Note initiated : 09/23/17 at 12:22 pm Service Date, if different from initiated Date: [] Patient: Kateryna Oconnor a 82 y/o F admitted on 09/20/17 for Fall/Colles' Fracture of Left Radius, Hip Fracture. Date of admission: 09/20/17 18:15 Discharge date: 09/23/17 Primary care physician: Mavis Crowder DO Admitting clinician: Joshua Knutson Consults: 09/20/17 15:00 Consult to Physician [CONS] Stat Comment: Consulting Provider: Joshua Knutson Reason For Exam: Physician to Consult Consult to Physician [CONS] Stat Comment: Consulting Provider: Zen Conklin Reason For Exam: Physician to Consult 09/23/17 11:22 Consult to Physician [CONS] Routine Comment: Consulting Provider: [facility] Reason For Exam: Physician to Consult Discharging clinician: Anna Pan Medical - DS: Meds - Discharge Medications Prescriptions: HYDROcodone/ACETAMINOPHEN [Shiloh 7.5-325 Tablet] 1 - 2 tab PO Q4-6HP PRN #50 tab PRN Reason: Pain Active and Home Medications: Home Medications calcium carbonate 500 mg calcium (1,250 mg) tablet 500 mg PO QDAY tab 08/12/15 [History Confirmed 09/22/17 Last Taken 09/19/17 09:00 500 mg.] cholecalciferol (vitamin D3) 5,000 unit capsule 5,000 unit PO WEEKLY cap [History Confirmed 09/22/17 Last Taken 09/19/17 09:00 5000 units] indapamide 2.5 mg tablet 2.5 mg PO QAM #90 tab 08/06/17 [Rx Confirmed 09/22/17 Last Taken 09/19/17 09:00 2.5 mg.] simvastatin 40 mg tablet 40 mg PO QPM #90 tab 08/24/17 [Rx Confirmed 09/22/17 Last Taken 09/19/17 21:00 40 mg.] HYDROcodone/ACETAMINOPHEN [Shiloh 7.5-325 Tablet] 1 - 2 tab PO Q4-6HP PRN #50 tab 09/23/17 [Rx Last Taken Unknown] Medical - DS: Hosp Hospital course: Mr. Oconnor is a 82 year old F 09/20 patient admitted by orthopedics after fall sustaining left hip and left wrist fracture. Hospitalist consult for management of medical issues. Patient underwent operative intervention with left hip fracture repair. Reviewed postoperatively. Weaning well. 09/21-patient recovering well from hip surgery. wrist fracture will be addressed by Dr. Esposito orthopedics on 09/22. No overnight fever chills. Tolerating diet. Was able to transfer out of bed to chair. In good spirits. No family at bedside. No concerns per staff 09/22- patient due for wrist surgery today. No overnight events. no fever chills or significant pain.. No family at bedside. no anxiety 09/23-starting to develop some tingling in her left arm and forearm as the nerve block wears off. Pain in the hip is controlled. Placements been arranged for further rehabilitation. Discharge diagnosis: Left hip intertrochanteric fracture, left wrist Colles' fracture - Time Spent with Patient Total time spent providing and/or coordinating discharge services: Greater than 30 minutes Medical - DS: Exam - Constitutional Vitals: Vital Signs Temp Pulse Pulse Resp BP Pulse Ox 09/23/17 08:58 79 14 98 09/23/17 08:50 98.5 F 79 14 115/64 98 09/23/17 04:00 98.3 F 74 14 99/57 96 09/23/17 00:00 99.3 F H 79 12 101/61 96 09/22/17 21:13 97.8 F 76 14 106/64 96 09/22/17 20:13 72 102/64 96 09/22/17 19:43 76 106/65 94 09/22/17 19:13 92 H 107/64 93 09/22/17 19:03 93 09/22/17 18:58 81 104/63 94 09/22/17 18:43 79 99/57 94 09/22/17 18:30 98.3 F 86 12 108/56 94 09/22/17 18:10 98.7 F 77 83 16 108/41 98 09/22/17 17:47 98.7 F 77 89 16 126/52 92 09/22/17 17:35 98.7 F 77 82 16 126/52 98 09/22/17 17:30 98.7 F 77 80 14 126/52 98 09/22/17 17:20 98.7 F 77 76 14 118/49 98 Intake and Output 09/22/17 09/23/17 09/23/17 21:59 05:59 13:59 Intake Total 3690 / 3690 0 / 0 240 / 240 Output Total 1250 / 1250 700 / 700 450 / 450 Balance 2440 / 2440 -700 / -700 -210 / -210 Intake: Oral 790 / 790 0 / 0 240 / 240 IV - Manual Only 2900 / 2900 Output: Urine Catheter Amount 550 / 550 700 / 700 450 / 450 Void Amount 700 / 700 Other: Meal Nourishment/Supplement Breakfast Percent of Meal Consumed 100% Feeding Ability Independent Assist with Tray Set Up Weight 128 lb 1.6 oz Additional comments: General: Laying in bed, appears comfortable Chest: Clear, unlabored Cardiovascular: Regular, no edema Abdomen: Soft, diminished but present bowel sounds, nontender Musculoskeletal: Left lower extremity neurovascularly intact. Left upper extremity splinted and wrapped. Edema of the digits. Minimal motor function and sensation secondary to nerve block. Neuro: Alert, oriented 3 Medical - DS: Data Procedures and tests throughout hospitalization: Date of procedure: Note initiated : 09/20/17 at 5:26 pm Pre-op diagnosis: L hip fx, L distal radius fx Post-op diagnosis: same Procedure: hip reduction and gamma, distal radius reduction and splint Grafts/Implants: gamma Anesthesia: GETA Surgeon: Joshua Knutson Farm Laborer: Gena Goldman Estimated blood loss: 200 Pathology: none sent Condition: stable Disposition: PACU Date of procedure: 09/22/17 Pre-op diagnosis: Left comminuted intra-articular distal radius and ulna fractures Post-op diagnosis: same Procedure: 1. Open reduction and internal fixation of the left wrist comminuted intra- articular distal radius fracture 2. Closed reduction and percutaneous fixation of the left wrist comminuted intra-articular distal ulna fracture Grafts/Implants: Yes ((1) [employer] volar plate, (4) 3.5 mm screws, (6) 2.4 pegs,(2)6.2kwi) Anesthesia: GLMA Findings: As above Complications: none Surgeon: Bala Juarez Farm Laborer: Jessica Blair Estimated blood loss (cc): 15 Tourniquet Time (Minutes): 99 Specimens Removed/Pathology: none sent Condition: stable Disposition: PACU Labs on day of discharge: Labs from last 24 hours 09/23/17 09/23/17 05:10 05:10 WBC 10.9 RBC 2.81 L Hgb 8.6 L Hct 25.4 L MCV 90.6 MCH 30.5 MCHC 33.6 RDW 12.3 Plt Count 257 MPV 7.0 L Total Counted 100 Seg Neutrophils % 87 H Band Neutrophils % Not Reportable Lymphocytes % 7 L Monocytes % (Manual) 6 Platelet Estimate Normal RBC Morphology Normal Sodium 138 Potassium 3.7 Chloride 100 Carbon Dioxide 28 Anion Gap 10.0 BUN 8 Creatinine 0.4 L GFR Calculation 96 Glucose 146 H Uric Acid 3.1 Calcium 8.1 L Phosphorus 2.8 Magnesium 1.6 Total Bilirubin 0.4 Direct Bilirubin < 0.2 GGT 9 AST 19 ALT 8 Alkaline Phosphatase 54 Lactate Dehydrogenase 176 Total Protein 5.0 L Albumin 2.6 L Globulin 2.4 Albumin/Globulin Ratio 1.1 Triglycerides 89 - Impressions Pelvis CT Impression: Intertrochanteric fracture of the left hip Wrist XR IMPRESSION: Severely deformed Colles' fracture Medical - DS: A/P - Patient/Caregiver Discharge Instructions Activity: as instructed Diet: Regular Diet Additional Instructions: NWB to Left lower extremity and no weight bearing to Left wrist. Can bear weight to Right lower extremity to stand and pivot transfer but has a bad right knee as well. All transfers with assist only. Keep wrist dressing on at all times splint cast and DAVID dressing until follow up with Dr Juarez. Cover for showers. CMS checks to Left fingers. Cap refill less than [address] Juarez's office if changes are noted. Follow up with Dr Knutson for Left hip in 2 weeks. Prescriptions: HYDROcodone/ACETAMINOPHEN [Shiloh 7.5-325 Tablet] 1 - 2 tab PO Q4-6HP PRN #50 tab PRN Reason: Pain - Follow up Plan Follow up with: Mavis Crowder DO [Primary Care Provider] - Disposition: Xfer SNF Prognosis: Fair Rehab Potential: Fair I certify that the patient requires SNF services: Yes Overall status at discharge: patient is not back to baseline Medical - DS: Qual - VTE Deep Vein Thrombosis/Pulmonary Embolism Present on Admission: No
--- NOTE | 2017-09-23 16:09 | Orthopedic Progress Note ---
Subjective Patient information: Note initiated : 09/23/17 at 4:07 pm Service Date, if different from initiated Date: [] Patient: Kateryna Oconnor 82 y/o F admitted on 09/20/17 for Fall/Colles' Fracture of Left Radius, Hip Fracture. Chief Complaint: [S/P ORIF of right hip fx and left distal radius] Patient is doing well. She does have some numbness in her left hand/fingers. Otherwise, no complaints. Denies any lower extremity weakness, SOA, or calf tenderness. Objective Vital signs: Vital Signs Temp Pulse Pulse Resp BP Pulse Ox 09/23/17 12:00 98.3 F 81 18 113/57 96 09/23/17 08:58 79 14 98 09/23/17 08:50 98.5 F 79 14 115/64 98 09/23/17 04:00 98.3 F 74 14 99/57 96 09/23/17 00:00 99.3 F H 79 12 101/61 96 09/22/17 21:13 97.8 F 76 14 106/64 96 09/22/17 20:13 72 102/64 96 09/22/17 19:43 76 106/65 94 09/22/17 19:13 92 H 107/64 93 09/22/17 19:03 93 09/22/17 18:58 81 104/63 94 09/22/17 18:43 79 99/57 94 09/22/17 18:30 98.3 F 86 12 108/56 94 09/22/17 18:10 98.7 F 77 83 16 108/41 98 09/22/17 17:47 98.7 F 77 89 16 126/52 92 09/22/17 17:35 98.7 F 77 82 16 126/52 98 09/22/17 17:30 98.7 F 77 80 14 126/52 98 09/22/17 17:20 98.7 F 77 76 14 118/49 98 Intake and Output 09/23/17 09/23/17 09/23/17 05:59 13:59 21:59 Intake Total 0 / 0 720 / 720 Output Total 700 / 700 1300 / 1300 Balance -700 / -700 -580 / -580 Intake: Oral 0 / 0 720 / 720 Output: Urine Catheter Amount 700 / 700 1300 / 1300 Other: Meal Lunch Percent of Meal Consumed 100% Feeding Ability Assist with Tray Set Up Intake & Output: Intake & Output 09/23/17 09/23/17 09/23/17 05:59 13:59 21:59 Intake Total 0 / 0 720 / 720 Output Total 700 / 700 1300 / 1300 Balance -700 / -700 -580 / -580 Intake: Oral 0 / 0 720 / 720 Output: Urine Catheter Amount 700 / 700 1300 / 1300 Other: Meal Lunch Percent of Meal Consumed 100% Feeding Ability Assist with Tray Set Up Incision: Yes healing, Yes clean and dry Incision clean and dry: Yes Dressing: Yes clean, Yes dry, Yes intact Weight bearing status: non Neurological exam IM: Yes alert, Yes oriented X3, Yes motor sensory intact, Yes neurovascular intact Extremities exam IM: Yes calf tenderness (negative), Yes Cuauhtemoc's sign (negative) - Labs CBC & BMP: 09/23/17 05:10 09/23/17 05:10 Labs: Orthopedic Labs 09/20/17 13:27 PT 14.1 INR 1.1 09/23/17 09/22/17 09/21/17 05:10 04:32 08:37 Hgb 8.6 L 9.3 L 12.1 Hct 25.4 L 27.4 L 35.7 L 09/20/17 13:27 Hgb 13.0 Hct 38.0 Assessment and Plan (1) Colles' fracture of left radius Continue neurovascular checks on LUE. The miguel bandage/splint was loosened and she had good capillary refill after loosening. Status: Acute (2) Hip fracture TTWB on LLE. May be up with PT and utilize wheelchair. Status: Acute
[2017-09-26] MEDS ORDERED: VITAMIN D3 5,000 UNIT CAPSULE PO SCH ×2 (09:00)
== END 2017-09-23 14:43 | DRG 481 ==
LOC: ED 11:45 → SUR 15:33 → MEDSUR 18:15
PROVIDERS: ADMIT Orthopaedic Surgery Orthopaedic Surgery of the Spine; ATTEND Internal Medicine

== ENCOUNTER 2017-11-25 04:51 | Inpatient (IN) ==
[2017-11-22 15:03] LABS: Appearance,Urine CLEAR; Bacteria,Urine 0 /hpf (0); Bilirubin,Urine NEG (NEG); Color,Urine YELLOW; Glucose,Urine (UA) NEGATIVE (NEG); Leukocyte Esterase,Urine 25 /uL (NEG); Mucus,Urine MOD /hpf (0); Protein,Urine NEG (NEG); Urine Blood NEG mg/dL (<0.03); Urine RBC 1 /hpf (0-1); Urine Squamous Epithelial Cell 1 /hpf (0-4); Urine Transitional Epi Cells < 1 /hpf (0-2); Urine WBC 1 /hpf (0-4)
[2017-11-22 18:16] LABS: Basophils # (Auto) 0 K/mcL (0.0-0.3); Basophils % (Auto) 0.4 % (0.0-2.0); Eosinophils # (Auto) 0.4 K/mcL (0.0-0.7); Eosinophils % (Auto) 3.5 % (0.0-7.0); Granulocytes % (Auto) 68.9 % (38.0-78.0); Lymphocytes # (Auto) 2.5 K/mcL (1.5-4.8); Mean Cell Volume 87.1 fL (80.0-100.0); Mean Corpuscular HGB Conc 32.6 g/dL (31.0-36.0); Mean Corpuscular Hemoglobin 28.4 pg (26.0-34.0); Monocytes # (Auto) 0.6 K/mcL (0.1-0.9); Monocytes % (Auto) 5.2 % (1.0-12.0); Platelet Count 449 K/mcL (140-440); Red Cell Distribution Width 14.7 % (11.5-14.5)
[2017-11-22 18:21] LABS: Blood Urea Nitrogen 10 mg/dl (8-23)
[2017-11-25] MEDS ORDERED: ceFAZolin 1 GM VIAL IV SCH (06:00)
[2017-11-25] MEDS ORDERED: HETASTARCH 6% 500 ML BAG IV ONE (07:30)
[2017-11-25] MEDS ORDERED: DEXAMETHASONE 10 MG/ML VIAL IV ONE (07:30)
[2017-11-25] MEDS ORDERED: IPRATROPIUM/ALBUTEROL 3 ML AMPUL.NEB NEB PRN ×2 (07:30→09:15)
[2017-11-25] MEDS ORDERED: PHENYLEPHRINE 10 MG/ML VIAL IV ONE (07:30)
[2017-11-25] MEDS ORDERED: SCOPOLAMINE 1 PATCH PATCH TOPICAL PRN (07:30)
[2017-11-25] MEDS ORDERED: ePHEDrine 50 MG/ML AMPUL IV ONE (07:30)
[2017-11-25] MEDS ORDERED: LIDOCAINE HCL/PF 100 MG/5 ML SYRINGE IV ONE (07:30)
[2017-11-25] MEDS ORDERED: TRANEXAMIC ACID 1,000 MG/10 ML VIAL IV ONE ×3 (07:30→10:09)
[2017-11-25] MEDS ORDERED: ROPIVACAINE HCL/PF 20 ML VIAL IJ ONE (07:30)
[2017-11-25] MEDS ORDERED: KETOROLAC 30 MG, ROPIVACAINE HCL/PF 49.5 ML, EPINEPHrine 0.5 MG, 0.9 % SODIUM CHLORIDE ... IJ ONE (07:30)
[2017-11-25] MEDS ORDERED: MIDAZOLAM 5 MG/5 ML VIAL IV ONE (07:30)
[2017-11-25] MEDS ORDERED: PROPOFOL 200 MG/20 ML VIAL IV ONE (07:30)
[2017-11-25] MEDS ORDERED: GENTAMICIN SULFATE 800 MG/20 ML VIAL IR ONE (07:56)
[2017-11-25] MEDS ORDERED: PROMETHAZINE 25 MG/ML VIAL IV PRN (09:15)
[2017-11-25] MEDS ORDERED: BENZOCAINE/MENTHOL 1 LOZENGE PO PRN ×2 (09:15→09:28)
[2017-11-25] MEDS ORDERED: NALOXONE HCL 0.4 MG/ML VIAL IV PRN (09:15)
[2017-11-25] MEDS ORDERED: diphenhydrAMINE 50 MG/ML VIAL IV PRN (09:15)
[2017-11-25] MEDS ORDERED: FLUMAZENIL 0.1 MG/ML ML IV PRN (09:15)
[2017-11-25] MEDS ORDERED: LACTATED RINGERS 1,000 ML IV SCH (09:15)
[2017-11-25] MEDS ORDERED: fentaNYL 100 MCG/2 ML VIAL IV PRN (09:15)
[2017-11-25] MEDS ORDERED: ACETAMINOPHEN 700 MG/70 ML BOTTLE IV ONE (09:15)
[2017-11-25] MEDS ORDERED: ONDANSETRON 4 MG/2 ML VIAL IV PRN ×2 (09:15→09:28)
[2017-11-25] MEDS ORDERED: LACTATED RINGERS 250 ML IV PRN (09:15)
[2017-11-25] MEDS ORDERED: MEPERIDINE 25 MG/ML SYRINGE IV PRN (09:15)
[2017-11-25] MEDS ORDERED: FLEETS ADULT ENEMA PR PRN (09:28)
[2017-11-25] MEDS ORDERED: BISACODYL 10 MG SUPP.RECT PR PRN (09:28)
[2017-11-25] MEDS ORDERED: MAGNESIUM HYDROXIDE 30 ML ORAL.SUSP PO PRN (09:28)
[2017-11-25] MEDS ORDERED: POLYETHYLENE GLYCOL 3350 17 GM PACKET PO PRN (09:28)
--- NOTE | 2017-11-25 09:36 | Brief Operative Note ---
Date of procedure: 11/25/17 Pre-op diagnosis: DJD, painful hwr Post-op diagnosis: same Procedure: Hwr removal, TKR Grafts/Implants: Yes (TC 3 Depuy) Anesthesia: JVA Surgeon: Stalin Trujillo Oven Baker: Sabino Mitchell Estimated blood loss (cc): 50 Tourniquet Time (Minutes): 70 Specimens Removed/Pathology: none sent Condition: stable Disposition: PACU
--- NOTE | 2017-11-25 10:07 | XRay Report ---
CLINICAL INFORMATION: Reason for Exam:Post-Op Total Knee COMPARISON: None. FINDINGS: Total knee prostheses is anatomically aligned. No significant osseous abnormality. Soft tissue swelling seen as expected IMPRESSION: Negative Interpreted and Authenticated by: Marcelo Bashir 11/25/17
[2017-11-25] MEDS ORDERED: TRANEXAMIC ACID 1,000 MG/10 ML VIAL IV SCH (10:15)
[2017-11-25] MEDS: DEXTROSE 5%-1/2NS W/20MEQ KCL 1,000 ML IV SCH ×2 (10:58→21:03)
--- NOTE | 2017-11-25 11:10 | Operative Note ---
DATE OF OPERATION: 11/25/2017 PREOPERATIVE DIAGNOSES: 1. Prominent plate status post right tibial plateau fracture. 2. Posttraumatic arthritis of the right knee. POSTOPERATIVE DIAGNOSES: 1. Prominent plate status post right tibial plateau fracture. 2. Posttraumatic arthritis of the right knee. OPERATION: Right total knee replacement. SURGEON: Stalin Trujillo MD DATABASE DESIGNER: Sabino Mitchell PA-C ANESTHESIA: General. TOURNIQUET TIME: 70 minutes. SUMMARY OF PROCEDURE: General anesthesia was attained. The patient's previous anterior wound was reopened and then extended another 2 inches or so proximally. The incision was taken down sharply to the plate and the fascia over the plate anterolaterally. The fascia was opened. The plate was from a previous plateau fracture. There were 6 screws that were removed. The plate was then removed as well and the fibrous tissue debrided with a rongeur. The knee was flexed past 90 degrees. An extramedullary guide was used. The proximal tibial cut was aligned and the neck cut was made. The tibia sized to a 2. The distal femur was opened. The posterior menisci were resected. The distal cutting guide was placed and a cut was made. The femur sized to a 3. The component was mildly lateralized. The patella was everted. Its depth was measured at 22 mm. A measured resection of 8 mm was done. The patella sized to a 32. The no-touch test later showed good tracking patella. Trials were then done of the tibial component. The best combination of stability and full range of motion was with a 12.5 mm insert. To get the gaps balanced I did a medial release of the insertion of the hamstrings and the medial collateral ligament. The components were next cemented in. Prior to cementation, the bone surfaces were thoroughly irrigated. The notch guide was used to cut the notch. The components were then cemented in. Excess cement was removed. The tourniquet was let down. All bleeding points were coagulated. The quadriceps and medial retinaculum were closed with buried #2 FiberWires and the second layer of a running locking 0 Maxon. The anterior fascia over the anterior compartment was closed with interrupted sutures of 0 Vicryl. The subcutaneous tissue was closed with buried sutures of 0 Monocryl. The skin was closed with brendan. Throughout the case the wound was infiltrated with a total of 100 mL of solution prepared by the pharmacy for postoperative analgesia. A sterile compressive dressing was applied. The patient awoke without difficulty. The sponge and needle count was correct. The patient tolerated the procedure well and was taken to the recovery room in stable condition. TJF:kristen Job ID: [id number] Doc ID: [id number] Stalin Trujillo MD
[2017-11-25] MEDS: 0.9 % SODIUM CHLORIDE 10 ML SYRINGE IV SCH (14:48)
[2017-11-25] MEDS: ceFAZolin 1 GM VIAL IV SCH (15:22)
[2017-11-25] MEDS: HYDROcodone/APAP 10/325MG TABLET PO PRN (19:45)
[2017-11-25] MEDS: SENNOSIDES 1 TABLET PO SCH (21:07)
[2017-11-25] MEDS: ASPIRIN 325 MG ENTERIC COATED TABLET PO SCH (21:07)
[2017-11-25] MEDS: SIMVASTATIN 40 MG TABLET PO SCH (21:07)
[2017-11-25] MEDS: DOCUSATE SODIUM 100 MG CAPSULE PO SCH (21:07)
[2017-11-26] MEDS: ceFAZolin 1 GM VIAL IV SCH (00:22)
[2017-11-26] MEDS: 0.9 % SODIUM CHLORIDE 10 ML SYRINGE IV SCH ×4 (00:22→20:23)
[2017-11-26] MEDS: HYDROcodone/APAP 10/325MG TABLET PO PRN ×5 (05:43→22:52)
[2017-11-26] MEDS: DEXTROSE 5%-1/2NS W/20MEQ KCL 1,000 ML IV SCH ×2 (06:11→16:09)
[2017-11-26] MEDS: ASPIRIN 325 MG ENTERIC COATED TABLET PO SCH ×2 (07:46→20:21)
[2017-11-26] MEDS: DOCUSATE SODIUM 100 MG CAPSULE PO SCH ×2 (07:46→20:21)
[2017-11-26] MEDS: CALCIUM W/VIT D3 500 MG TABLET PO SCH (07:46)
[2017-11-26] MEDS: OMEPRAZOLE 20 MG CAPSULE PO SCH (07:46)
[2017-11-26] MEDS: MULTIVIT,THER IRON,CA,FA & MIN 1 TABLET PO SCH (07:46)
--- NOTE | 2017-11-26 08:05 | Orthopedic Progress Note ---
Subjective Patient information: Note initiated : 11/26/17 at 8:02 am Service Date, if different from initiated Date: [] Patient: Kateryna Oconnor 82 y/o F admitted on 11/25/17 for Right Total Knee Arthroplasty and Tibial Plate . Chief Complaint: [] Interval history: Patient is POD 1 from a right TKA and is complaining of numbness and weakness in her foot. She is unable to lift her foot or facundo her foot and she has some numbness/tingling in the peroneal nerve distribution on her foot. Her pain is well controlled and she is otherwise doing well and is very careful with walking. She denies any chest pain, calf pain, fever, headache, or any other acute symptoms. Objective Vital signs: Vital Signs Temp Pulse Resp BP Pulse Ox 11/26/17 04:34 98.4 F 88 16 104/60 95 11/26/17 00:36 98.1 F 82 14 107/56 93 11/25/17 19:51 97.5 F 93 H 18 119/67 94 11/25/17 16:45 93 H 11/25/17 14:00 98 F 15 118/68 95 11/25/17 13:28 93 H 11/25/17 13:09 98.5 F 104 H 14 117/70 98 11/25/17 12:27 98.5 F 93 H 14 111/67 11/25/17 12:00 96 H 14 97 11/25/17 11:00 104 H 13 107/63 98 11/25/17 10:15 98.4 F 93 H 15 113/46 94 11/25/17 10:10 93 H 17 113/46 94 11/25/17 10:05 98.4 F 94 H 16 112/49 94 11/25/17 10:00 93 H 18 118/50 94 11/25/17 09:55 98.4 F 92 H 16 115/56 97 11/25/17 09:50 90 16 119/44 98 11/25/17 09:45 97 H 14 124/45 98 11/25/17 09:40 89 15 122/45 99 11/25/17 09:35 97.6 F 88 18 123/43 99 Intake and Output 11/25/17 11/26/17 11/26/17 21:59 05:59 13:59 Intake Total 1710 / 1710 300 / 300 Output Total 1300 / 1300 700 / 700 100 / 100 Balance 410 / 410 -400 / -400 -100 / -100 Intake: IV 1000 / 1000 Dextrose 5%-1/2Ns W/20Meq KCl 1 1000 / 1000 ,000 ml @ 100 mls/hr IV .Q10H MAYRA Rx#:[id number] Oral 710 / 710 300 / 300 Output: Urine Catheter Amount 1300 / 1300 700 / 700 100 / 100 Other: Meal Lunch Percent of Meal Consumed 100% Feeding Ability Independent Weight 107 lb Intake & Output: Intake & Output 11/25/17 11/26/17 11/26/17 21:59 05:59 13:59 Intake Total 1710 / 1710 300 / 300 Output Total 1300 / 1300 700 / 700 100 / 100 Balance 410 / 410 -400 / -400 -100 / -100 Weight 107 lb Intake: IV 1000 / 1000 Dextrose 5%-1/2Ns W/20Meq KCl 1 1000 / 1000 ,000 ml @ 100 mls/hr IV .Q10H MAYRA Rx#:[id number] Oral 710 / 710 300 / 300 Output: Urine Catheter Amount 1300 / 1300 700 / 700 100 / 100 Other: Meal Lunch Percent of Meal Consumed 100% Feeding Ability Independent Incision: Yes healing Incision clean and dry: Yes Dressing: Yes clean, Yes dry, Yes intact Weight bearing status: full Neurological exam IM: No neurovascular intact (patient has pulses using doppler that is biphasic, she has numbness in peroneal nerve distribution and us unable to facundo or dorsiflex the foot. ) Extremities exam IM: No calf tenderness, Yes Foot pink and warm - Labs CBC & BMP: 11/26/17 04:25 11/22/17 13:48 Labs: Orthopedic Labs 11/26/17 11/22/17 04:25 13:48 PT 14.5 13.8 INR 1.1 1.1 11/26/17 11/22/17 04:25 13:48 Hgb 10.5 L 13.4 Hct 31.0 L 40.9 Assessment and Plan (1) Status post total right knee replacement Patient is doing well but she has a drop foot and injury to the peroneal nerve, I will have her use a short walking boot at all times while walking to prevent a fall. She will continue with PT. Plan for discharge in 1-2 days. Status: Acute
[2017-11-26] MEDS: INDAPAMIDE 2.5 MG TABLET PO SCH (08:52)
[2017-11-26] MEDS: SENNOSIDES 1 TABLET PO SCH (20:21)
[2017-11-26] MEDS: SIMVASTATIN 40 MG TABLET PO SCH (20:21)
[2017-11-27] MEDS: CALCIUM W/VIT D3 500 MG TABLET PO SCH (07:57)
[2017-11-27] MEDS: INDAPAMIDE 2.5 MG TABLET PO SCH (07:57)
[2017-11-27] MEDS: MULTIVIT,THER IRON,CA,FA & MIN 1 TABLET PO SCH (07:57)
[2017-11-27] MEDS: HYDROcodone/APAP 10/325MG TABLET PO PRN (07:57)
[2017-11-27] MEDS: DOCUSATE SODIUM 100 MG CAPSULE PO SCH (07:57)
[2017-11-27] MEDS: ASPIRIN 325 MG ENTERIC COATED TABLET PO SCH (07:57)
[2017-11-27] MEDS: OMEPRAZOLE 20 MG CAPSULE PO SCH (08:00)
[2017-11-27] MEDS: 0.9 % SODIUM CHLORIDE 10 ML SYRINGE IV SCH ×2 (08:01→10:11)
--- NOTE | 2017-11-27 08:11 | Orthopedic Progress Note ---
Subjective Patient information: Note initiated : 11/27/17 at 8:09 am Service Date, if different from initiated Date: [] Patient: Kateryna Oconnor 82 y/o F admitted on 11/25/17 for Right Total Knee Arthroplasty and Tibial Plate . Chief Complaint: [] Principal diagnosis: s/p r knee replacement and hardware removal Objective Vital signs: Vital Signs Temp Pulse Resp BP BP Pulse Ox 11/27/17 06:38 98.8 F 16 121/66 94 11/27/17 04:00 98.3 F 80 14 103/63 92 11/27/17 00:00 98.2 F 72 18 107/54 94 11/26/17 20:25 83 16 100/63 95 11/26/17 19:38 98.3 F 74 14 112/65 94 11/26/17 15:30 98.2 F 82 16 114/63 94 11/26/17 12:00 98.0 F 67 18 116/71 93 Intake and Output 11/26/17 11/27/17 11/27/17 21:59 05:59 13:59 Intake Total 150 / 150 250 / 250 Output Total / Balance 48 / 48 249 / 249 Intake: Oral 150 / 150 250 / 250 Output: Void Amount 100 / 100 # of times incontinent of urine 2 / 2 Other: Percent of Meal Consumed Refused Weight 108 lb 8 oz Intake & Output: Intake & Output 11/26/17 11/27/17 11/27/17 21:59 05:59 13:59 Intake Total 150 / 150 250 / 250 Output Total / Balance 48 / 48 249 / 249 Weight 108 lb 8 oz Intake: Oral 150 / 150 250 / 250 Output: Void Amount 100 / 100 # of times incontinent of urine 2 / 2 Other: Percent of Meal Consumed Refused Incision: Yes healing Incision clean and dry: Yes (has medial blister) Dressing: Yes clean, Yes dry Weight bearing status: as tolerated Additional Comments: foot drop mon right, recurrent Extremities exam IM: Yes normal inspection, Yes Foot pink and warm - Diagnostic Results Knee x-ray: image reviewed (well positioned tkr) - Labs CBC & BMP: 11/27/17 04:30 11/22/17 13:48 Labs: Orthopedic Labs 11/27/17 11/26/17 11/22/17 04:30 04:25 13:48 PT 14.6 H 14.5 13.8 INR 1.1 1.1 1.1 11/27/17 11/26/17 11/22/17 04:30 04:25 13:48 Hgb 9.9 L 10.5 L 13.4 Hct 29.8 L 31.0 L 40.9 Assessment and Plan (1) Status post total right knee replacement recurrent foot drop; had after hip surgery as well. Otherwise doing well/ Will d /c with afo type brace, follow up 2 days to get light weight AFO if still needed Status: Acute
== END 2017-11-27 09:30 | disposition home or self-care (01) | DRG 470 ==
LOC: MEDSUR 04:51
PROVIDERS: ADMIT Orthopaedic Surgery Foot and Ankle Surgery; ATTEND Orthopaedic Surgery Foot and Ankle Surgery

== ENCOUNTER 2021-07-21 12:19 | Inpatient (IN) ==
[2021-07-21] MEDS ORDERED: 0.9 % SODIUM CHLORIDE 1,000 ML IV ONE (13:50)
--- NOTE | 2021-07-21 14:34 | XRay Report ---
INDICATION: pain post trauma TECHNIQUE: AP and crosstable lateral right knee COMPARISON: Previous examination dated 11/25/2017 FINDINGS:Positioning is suboptimal due to fracture and pain Previous right total knee arthroplasty. Periprosthetic distal right femoral fracture. There is dorsal angulation deformity and mild lateral displacement. Proximal tibia and fibula are negative IMPRESSION: 1. Previous right total knee arthroplasty 2. Mildly displaced the and posteriorly angulated periprosthetic distal right femoral fracture Interpreted and Authenticated by: Marcelo Waggoner 07/21/21
[2021-07-21 14:38] LABS: Basophils # (Auto) 0.06 K/mcL (0.00-0.30); Basophils % (Auto) 0.7 % (0.0-2.0); Eosinophils # (Auto) 0.07 K/mcL (0.00-0.70); Eosinophils % (Auto) 0.8 % (0.0-7.0); Hematocrit 43.1 % (34.1-44.9); Hemoglobin 14.5 g/dL (11.2-15.7); Lymphocytes # (Auto) 1.62 K/mcL (1.50-4.80); Lymphocytes % (Auto) 17.7 % (15.5-49.0); Mean Cell Volume 90.7 fL (80.0-100.0); Mean Corpuscular HGB Conc 33.6 g/dL (31.0-36.0); Mean Platelet Volume 8.5 fL (7.4-10.4); Monocytes # (Auto) 0.86 K/mcL (0.10-0.90); Monocytes % (Auto) 9.4 % (1.0-12.0); Neutrophils % (Auto) 71.4 % (38.0-78.0); Platelet Count 299 K/mcL (140-440); RBC 4.75 M/mcL (3.59-5.38); WBC 9.2 K/mcL (4.5-11.0)
[2021-07-21] MEDS ORDERED: ONDANSETRON 4 MG/2 ML VIAL IV ONE (14:42)
[2021-07-21] MEDS ORDERED: morphine 4 MG/ML VIAL IV ONE (14:42)
--- NOTE | 2021-07-21 14:55 | Emergency Department Note ---
Syncope HPI General Chief Complaint: Syncope Stated Complaint: syncope, right knee pain Time Seen by Provider: 07/21/21 13:21 Source: patient, family ( at bedside), EMS, RN notes reviewed and old records reviewed Mode of arrival: EMS Limitations: no limitations History of Present Illness HPI Narrative: Narrative: 85-year-old female was walking felt weak legs collapsed dropped to her knees complaining of right knee pain she did not have a complete syncopal episode or loss of consciousness it was near syncope. Denies hitting her head denies any neck pain denies any chest pain denies any shortness of breath or abdominal pain. MD Complaint: felt faint, almost passed out and collapsed Onset (ago): minute(s) (30 minutes prior to arrival) Description of Event: other ([place] weak dropped to her knees no loss of consciousness complains of right knee pain) Prodromal Symptoms: lightheaded Witnessed: yes - by bystander Context: during exertion Injuries Sustained Associated with Event: RLE Current Symptoms: back to baseline Treatments prior to arrival: none Related Data Home Medications Medication Instructions Recorded Confirmed calcium carbonate 500 mg (1,250 1 tab PO DAILY 11/25/17 06/30/21 mg)-vitamin D3 125 unit tablet multivitamin 1 each PO DAILY 11/25/17 12/25/20 gabapentin 100 mg capsule 100 mg PO TID cap 12/15/17 12/25/20 tramadol 50 mg tablet 50 mg PO Q8H tab 12/15/17 06/30/21 Previous Rx's Medication Instructions Recorded memantine 5 mg tablet (Namenda) 5 mg PO QAM #90 tab 02/10/21 donepezil 5 mg tablet 5 mg PO QHS #90 tab 05/23/21 indapamide 2.5 mg tablet 2.5 mg PO QAM #90 tab 05/23/21 omeprazole 20 mg capsule,delayed 20 mg PO QAM #90 cap 05/23/21 release oxybutynin chloride 5 mg tablet 5 mg PO QDAY #90 tab 05/23/21 simvastatin 40 mg tablet 40 mg PO QPM #90 tab 05/23/21 alendronate 70 mg tablet (Fosamax) 70 mg PO QWEEK #14 tab 05/26/21 Allergies Allergy/AdvReac Type Severity Reaction Status Date / Time niacin AdvReac Intermediate Itching Verified 06/30/21 12:59 Calcitonin AdvReac Mild Nasal Verified 06/30/21 12:59 irritation Review of Systems ROS ROS Narrative: Narrative: All systems ED: reviewed and negative except as stated. [facility] Narrative Patient History Narrative: Narrative: Medical/Surgical/Family History All Active Problems (Updated 07/21/21 @ 15:29 by John Dominguez MD) Femur fracture, right (Acute) Memory loss (Acute) OAB (overactive bladder) (Acute) Medicare annual wellness visit, subsequent (Acute) Humerus fracture (Acute) Anemia (Chronic) Nerve damage of right foot (Chronic) Colles' fracture of left radius (Acute) Hip fracture (Acute) Status post total right knee replacement (Acute) Therapeutic opioid-induced constipation (OIC) (Acute) S/P total knee arthroplasty (Acute) GERD (gastroesophageal reflux disease) (Chronic) Colles' fracture of radius (Chronic) Closed fracture of left hip requiring operative repair with routine healing (Chronic) Esophageal stricture (Chronic) Benign paroxysmal positional vertigo (Acute) Weight loss (Acute) Dysphagia (Acute) Urinary frequency (Chronic) Dyspepsia (Chronic) Encounter for Health Maintenance Examination in Adult (Chronic) History of colonoscopy (Chronic) History of bladder surgery (Chronic) Closed tibial fracture (Chronic) Thrombocytosis (Chronic) Osteoporosis (Chronic) Menopausal and postmenopausal disorder (Chronic) Leukocytosis (Chronic) Hypertension, essential (Chronic) Hyperlipidemia (Chronic) Fibrocystic disease of breast (Chronic) Personal history of colonic polyps (Chronic 06/14/02) skilled nursing use of drug (Chronic 09/09/13) Medical History Anemia Benign paroxysmal positional vertigo Closed fracture of left hip requiring operative repair with routine healing Closed tibial fracture and fibular fracture, closed. Trauma with right tibial/fibial fracture by x-ray 08/17/03. Colles' fracture of radius Dyspepsia Encounter for Health Maintenance Examination in Adult 12/15/17 Esophageal abnormality followed by Dr. Upton April 2017 Esophageal stricture Fibrocystic disease of breast Cystic breast disease with positive family history--mother Breast CA. --lump in upper/outer quadrant of R. breast--negative mammogram 09/03/97--review Dr. Templeton . Stable mammograms since that point in time. GERD (gastroesophageal reflux disease) H/O fracture of left hip Hyperlipidemia Flushing & itching w/Niacin, changed to Zocor--off--resume Zocor Hypertension, essential 06/2010 Mild hypertension 06/2010--Lozol--forwards home BP's Leukocytosis 03/23/04--hospitalized w/leukocytosis, abnormal US, decreased gallbladder ejection fraction with symptoms probably secondary to gallbladder. skilled nursing use of drug (09/09/13) Patient on Zocor Medicare annual wellness visit, subsequent Memory loss Menopausal and postmenopausal disorder Mild menopausal symptoms--resolved Nerve damage of right foot OAB (overactive bladder) Osteoporosis 12/1996 Bone Density 12/27/96 Spine T-score -3.8. Bone Density 12/30/01--Spine T-score - 3.6. Bone Density 06/16/07--Spine T-score -2.6, Hip T-score -2.9. Normal Vit D level 07/01. Tolerates Evista well. Bone Density 09/20/12--Spine T-score - 2.8; Hip T-score -3.1. Personal history of colonic polyps (06/14/02) Colonoscopy 06/14/02--Dr. Sanabria--normal Reflux; EGD 01/26/96--Dr. Sanabria--distal esophageal ulcerations reflux in origin, hiatal hernia. Prevacid, changed to Prilosec Thrombocytosis 11/1995 Mild thrombocytosis first note . Surgical History H/O total knee replacement 11/2017 History of bladder surgery Bladder reconstruction 1980 bladder lift History of colonoscopy 05/2002 Colonoscopy 06/14/02--Dr. Sanabria--Normal Family History Mother Family history of malignant neoplasm of breast Unknown Essential hypertension Acute myocardial infarction Osteoarthritis Sister Neoplasm of uterine adnexa Uterine CA Social History Smoking Status: Never smoker Alcohol Intake Frequency: does not drink Substance Use: does not use Exam Narrative Narrative: Narrative: General Limitations: no limitations General appearance: Present alert, anxious and in distress Head Head: Present atraumatic, normocephalic and normal inspection Eye Eye: Present normal appearance, PERRL and EOMI ENT ENT: Present normal exam and mucous membranes dry Neck Neck: Present normal inspection and full ROM Chest Chest: Present normal inspection; Absent tenderness Respiratory Respiratory: Present normal lung sounds bilaterally; Absent respiratory distress Cardiovascular Cardiovascular: Present regular rate, normal rhythm and systolic murmur Adbominal Abdominal: Present soft; Absent distention, tenderness, guarding or rebound Extremities Extremities: Present normal inspection, tenderness (Right knee tender to palpation with deformity), normal capillary refill and joint swelling; Absent full ROM, pedal edema or pretibial edema Expanded Lower Extremity Knee: Present tenderness, swelling, ecchymosis, deformity and effusion; Absent normal inspection, full ROM, laceration or crepitus Neurovascular/Tendon: Present normal capillary refill; Absent pulse deficit, motor deficit or sensory deficit Back Back: Present normal inspection; Absent CVA tenderness (R) or CVA tenderness (L) Neurological Neurological: Present alert and oriented X3 Psychiatric Psychiatric: Present normal affect and normal mood Skin Skin: Present warm (WNL); Absent rash Course Vital Signs Vital signs: Vital Signs Temperature 97.3 F 07/21/21 12:23 Pulse Rate 81 07/21/21 12:23 Respiratory Rate 21 07/21/21 12:23 Blood Pressure 111/67 07/21/21 12:23 Pulse Oximetry (%) 92 07/21/21 12:23 Temperature 97.3 F 07/21/21 12:23 Pulse Rate 85 07/21/21 14:54 Respiratory Rate 16 07/21/21 14:54 Blood Pressure 109/53 07/21/21 14:54 Pulse Oximetry (%) 88 L 07/21/21 14:54 [facility] MDM Narrative Medical decision making narrative: Narrative: 85-year-old female with near syncopal event with a proximal femur fracture. Discussed patient with Dr. Knutson who will see the patient Dr. Hutton will perform surgery. Page is out to hospitalist for admission. Differential Diagnosis Differential Diagnosis: Syncope, near-syncope, electrolyte disorder, ACS, knee fracture, knee dislo Lab Data Lab results reviewed: Yes I reviewed the patient's lab results. Result diagrams: 07/21/21 14:03 07/21/21 14:02 Labs: Lab Results 07/21/21 07/21/21 07/21/21 Range/Units 14:02 14:03 14:03 WBC 9.2 (4.5-11.0) K/mcL RBC 4.75 (3.59-5.38) M/mcL Hgb 14.5 (11.2-15.7) g/dL Hct 43.1 (34.1-44.9) % MCV 90.7 (80.0-100.0) fL MCH 30.5 (26.0-34.0) pg MCHC 33.6 (31.0-36.0) g/dL RDW 12.0 (11.5-14.5) % Plt Count 299 (140-440) K/mcL MPV 8.5 (7.4-10.4) fL Neut % (Auto) 71.4 (38.0-78.0) % Lymph % (Auto) 17.7 (15.5-49.0) % [place] % (Auto) 9.4 (1.0-12.0) % Eos % (Auto) 0.8 (0.0-7.0) % Baso % (Auto) 0.7 (0.0-2.0) % Lymph # (Auto) 1.62 (1.50-4.80) K/mcL [place] # (Auto) 0.86 (0.10-0.90) K/mcL Eos # (Auto) 0.07 (0.00-0.70) K/mcL Baso # (Auto) 0.06 (0.00-0.30) K/mcL Absolute Neutrophils 6.56 (1.80-8.00) K/mcL VBG Lactic Acid 1.8 (0.5-2.0) mmol/L Sodium 139 (133-145) mmol/L Potassium 3.7 (3.3-5.1) mmol/L Chloride 100 (96-108) mmol/L Carbon Dioxide 26 (22-30) mmol/L Anion Gap 13.0 (8.0-16.0) BUN 12 (8-23) mg/dL Creatinine 0.8 (0.6-1.1) mg/dL GFR Calculation 66 Glucose 113 H (70-105) mg/dL Calcium 10.0 (8.6-10.4) mg/dL Total Bilirubin 0.5 (0.1-1.0) mg/dL AST 18 (<32) U/L ALT 11 (<40) U/L Alkaline Phosphatase 79 (39-117) U/L Troponin T (<0.03) ng/mL Total Protein 7.2 (5.9-8.4) gm/dL Albumin 4.0 (3.2-5.2) gm/dL Globulin 3.2 (2.2-3.7) gm/dL Albumin/Globulin Ratio 1.3 (1.0-2.3) 07/21/21 Range/Units 14:03 WBC (4.5-11.0) K/mcL RBC (3.59-5.38) M/mcL Hgb (11.2-15.7) g/dL Hct (34.1-44.9) % MCV (80.0-100.0) fL MCH (26.0-34.0) pg MCHC (31.0-36.0) g/dL RDW (11.5-14.5) % Plt Count (140-440) K/mcL MPV (7.4-10.4) fL Neut % (Auto) (38.0-78.0) % Lymph % (Auto) (15.5-49.0) % [place] % (Auto) (1.0-12.0) % Eos % (Auto) (0.0-7.0) % Baso % (Auto) (0.0-2.0) % Lymph # (Auto) (1.50-4.80) K/mcL [place] # (Auto) (0.10-0.90) K/mcL Eos # (Auto) (0.00-0.70) K/mcL Baso # (Auto) (0.00-0.30) K/mcL Absolute Neutrophils (1.80-8.00) K/mcL VBG Lactic Acid (0.5-2.0) mmol/L Sodium (133-145) mmol/L Potassium (3.3-5.1) mmol/L Chloride (96-108) mmol/L Carbon Dioxide (22-30) mmol/L Anion Gap (8.0-16.0) BUN (8-23) mg/dL Creatinine (0.6-1.1) mg/dL GFR Calculation Glucose (70-105) mg/dL Calcium (8.6-10.4) mg/dL Total Bilirubin (0.1-1.0) mg/dL AST (<32) U/L ALT (<40) U/L Alkaline Phosphatase (39-117) U/L Troponin T < 0.01 (<0.03) ng/mL Total Protein (5.9-8.4) gm/dL Albumin (3.2-5.2) gm/dL Globulin (2.2-3.7) gm/dL Albumin/Globulin Ratio (1.0-2.3) Radiology Data Radiology results reviewed: Yes I reviewed the patient's radiology results. Radiology results narrative: Right knee x-ray IMPRESSION: 1. Previous right total knee arthroplasty 2. Mildly displaced the and posteriorly angulated periprosthetic distal right femoral fracture EKG Data EKG #1: EKG attestation: Yes I reviewed and interpreted this EKG. EKG shows normal: sinus rhythm Rate: normal (67) Rhythm: NSR [place]/QRS: normal QRS morphology: Present poor R-wave progression Interpretation: nonspecific ST-T wave changes Pulse Oximetry Data Pulse Ox %: 96 Discharge Plan Patient/Caregiver Discharge Instructions Pt seen by [employer]/PA only: No Clinical Impression: Femur fracture, right Patient Disposition: Xfer As Inpt ([facility]) Follow up with: Mavis Crowder DO [Primary Care Provider] - Prescriptions: No Action memantine [Namenda] 5 mg tablet 5 mg PO QAM Qty: 90 1RF oxybutynin chloride 5 mg tablet 5 mg PO QDAY Qty: 90 0RF indapamide 2.5 mg tablet 2.5 mg PO QAM Qty: 90 0RF donepezil 5 mg tablet 5 mg PO QHS Qty: 90 0RF simvastatin 40 mg tablet 40 mg PO QPM Qty: 90 0RF omeprazole 20 mg capsule,delayed release(DR/EC) 20 mg PO QAM Qty: 90 0RF Rx Instructions: TAKE BEFORE BREAKFAST FOR STOMACH ISSUE alendronate [Fosamax] 70 mg tablet 70 mg PO QWEEK Qty: 14 2RF tramadol 50 mg tablet 50 mg PO Q8H 0RF gabapentin 100 mg capsule 100 mg PO TID 0RF calcium carbonate-vitamin D3 1 EACH tablet 1 tab PO DAILY 0RF multivitamin 1 EACH tablet 1 each PO DAILY 0RF
[2021-07-21 15:05] LABS: ALT/SGPT 11 U/L (<40); AST/SGOT 18 U/L (<32); Albumin/Globulin Ratio 1.3 (1.0-2.3); Alkaline Phosphatase 79 U/L (39-117); Bilirubin,Total 0.5 mg/dL (0.1-1.0); Blood Urea Nitrogen 12 mg/dL (8-23); Carbon Dioxide 26 mmol/L (22-30); Chloride 100 mmol/L (96-108); Globulin 3.2 gm/dL (2.2-3.7); Glomerular Filtration Rate 66; Glucose 113 mg/dL (70-105)
--- NOTE | 2021-07-21 16:34 | Internal Med History&Physical ---
HPI History of Present Illness Patient information: Note initiated : 07/21/21 at 4:23 pm Service Date, if different from initiated Date: [] Patient: Kateryna Oconnor a 85 y/o F admitted on for syncope, right knee pain. Chief Complaint: [right distal femoral fracture ] History of present illness: Ms. Oconnor is a 85 year old F history of dementia, overactive bladder, mixed dyslipidemia, GERD, status post right knee total arthroplasty, presenting with fall with resultant right knee fractures. Earlier this morning at 11 AM, when patient was ambulating in the house preparing for lunch, she felt dizzy with lightheadedness and she fell and landed on her right knee. She denies any loss of consciousness. She denies any confusions or lethargy. She denies any chest pain or palpitations. She denies any headaches. She denies any shortness of breath. She denies any incontinences. She is currently company of 3 out of 10 cramping constant pain of her right knee. Vital signs within normal limits. Labs also largely within normal limits. WBC 9.2. Troponin less than 0.01. Right knee x-ray showing previous right total knee arthroplasty, together with mildly displaced and posteriorly angulated periprosthetic distal right femoral fracture. Constitutional Constitutional: Absent chills, excessive sweating, fatigue, fever(s) or weakness EENT Eyes: Absent blurry vision, change in vision, loss of vision or other visual disturbances Ears: Absent decreased hearing or tinnitus Nose, mouth and throat: Absent abnormal hearing, dry mouth, headache(s), nasal congestion or sore throat Cardiovascular Cardiovascular: Absent chest pain, chest pain at rest, edema, irregular heart rhythm or palpatations Respiratory Respiratory: Absent cough, dyspnea or wheezing Gastrointestinal Gastrointestinal: Absent abdominal pain, constipation, diarrhea, nausea or vomiting Musculoskeletal Musculoskeletal: Absent back pain, deformity, limited range of motion, muscle cramps, muscle weakness or numbness Additional comments: right knee pain Integumentary Integumentary: Absent lesions, rash or wounds Neurological Neurological: Absent focal weakness, headache(s) or numbness Psychiatric Psychiatric: Absent anxiety, depression or hallucinations PFSH PFSH All Active Problems (Updated 07/21/21 @ 16:30 by Prashant Morton MD) Dementia (Acute) Femur fracture, right (Acute) Memory loss (Acute) OAB (overactive bladder) (Acute) Medicare annual wellness visit, subsequent (Acute) Humerus fracture (Acute) Anemia (Chronic) Nerve damage of right foot (Chronic) Colles' fracture of left radius (Acute) Hip fracture (Acute) Status post total right knee replacement (Acute) Therapeutic opioid-induced constipation (OIC) (Acute) S/P total knee arthroplasty (Acute) GERD (gastroesophageal reflux disease) (Chronic) Colles' fracture of radius (Chronic) Closed fracture of left hip requiring operative repair with routine healing (Chronic) Esophageal stricture (Chronic) Benign paroxysmal positional vertigo (Acute) Weight loss (Acute) Dysphagia (Acute) Urinary frequency (Chronic) Dyspepsia (Chronic) Encounter for Health Maintenance Examination in Adult (Chronic) History of colonoscopy (Chronic) History of bladder surgery (Chronic) Closed tibial fracture (Chronic) Thrombocytosis (Chronic) Osteoporosis (Chronic) Menopausal and postmenopausal disorder (Chronic) Leukocytosis (Chronic) Hypertension, essential (Chronic) Hyperlipidemia (Chronic) Fibrocystic disease of breast (Chronic) Personal history of colonic polyps (Chronic 06/14/02) [facility] use of drug (Chronic 09/09/13) Medical History Anemia Benign paroxysmal positional vertigo Closed fracture of left hip requiring operative repair with routine healing Closed tibial fracture and fibular fracture, closed. Trauma with right tibial/fibial fracture by x-ray 08/17/03. Colles' fracture of radius Dyspepsia Encounter for Health Maintenance Examination in Adult 12/15/17 Esophageal abnormality followed by Dr. Upton April 2017 Esophageal stricture Fibrocystic disease of breast Cystic breast disease with positive family history--mother Breast CA. --lump in upper/outer quadrant of R. breast--negative mammogram 09/03/97--review Dr. Templeton . Stable mammograms since that point in time. 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 Bone Density 12/30/01--Spine T-score - 3.6. Bone Density 06/16/07--Spine T-score -2.6, Hip T-score -2.9. Normal Vit D level 07/01. Tolerates Evista well. Bone Density 09/20/12--Spine T-score - 2.8; Hip T-score -3.1. Personal history of colonic polyps (06/14/02) Colonoscopy 06/14/02--Dr. Sanabria--normal Reflux; EGD 01/26/96--Dr. Sanabria--distal esophageal ulcerations reflux in origin, hiatal hernia. Prevacid, changed to Prilosec Thrombocytosis 11/1995 Mild thrombocytosis first note . Surgical History H/O total knee replacement 11/2017 History of bladder surgery Bladder reconstruction 1979 bladder lift History of colonoscopy 05/2002 Colonoscopy 06/14/02--Dr. Sanabria--Normal Family History Mother Family history of malignant neoplasm of breast Unknown Essential hypertension Acute myocardial infarction Osteoarthritis Sister Neoplasm of uterine adnexa Uterine CA Social History (Updated 12/25/20 @ 13:05 by Cinthia Puente CMA) household members: spouse housing: house lives independently: Yes marital status: occupational status: retired occupation: Retired vocational school teacher other: Son Sally) [phone] smoking status: Never smoker alcohol intake frequency: does not drink substance use type: does not use MEDS/ALLERGIES Home Medications and Allergies Home Medications Medication Instructions Recorded Confirmed Type calcium carbonate 500 mg (1,250 1 tab PO DAILY 11/25/17 06/30/21 History mg)-vitamin D3 125 unit tablet multivitamin 1 each PO DAILY 11/25/17 12/25/20 History gabapentin 100 mg capsule 100 mg PO TID cap 12/15/17 12/25/20 History tramadol 50 mg tablet 50 mg PO Q8H tab 12/15/17 06/30/21 History memantine 5 mg tablet (Namenda) 5 mg PO QAM #90 tab 02/10/21 06/30/21 Rx donepezil 5 mg tablet 5 mg PO QHS #90 tab 05/23/21 06/30/21 Rx indapamide 2.5 mg tablet 2.5 mg PO QAM #90 tab 05/23/21 06/30/21 Rx omeprazole 20 mg capsule,delayed 20 mg PO QAM #90 cap 05/23/21 06/30/21 Rx release oxybutynin chloride 5 mg tablet 5 mg PO QDAY #90 tab 05/23/21 06/30/21 Rx simvastatin 40 mg tablet 40 mg PO QPM #90 tab 05/23/21 06/30/21 Rx alendronate 70 mg tablet (Fosamax) 70 mg PO QWEEK #14 tab 05/26/21 06/30/21 Rx Allergies Allergy/AdvReac Type Severity Reaction Status Date / Time niacin AdvReac Intermediate Itching Verified 06/30/21 12:59 Calcitonin AdvReac Mild Nasal Verified 06/30/21 12:59 irritation EXAM Constitutional Vitals: Temp Pulse Resp BP Pulse Ox 36.3 C 85 21 119/65 96 07/21/21 12:23 07/21/21 16:01 07/21/21 16:01 07/21/21 16:01 07/21/21 16:01 General appearance: cooperative and no acute distress Head Head exam: Present atraumatic and normocephalic Eye Eye exam: Present EOMI and PERRL ENT ENT exam: Present mucous membranes moist, normal exam and normal external ear exam Neck Neck exam: Present normal inspection; Absent lymphadenopathy, tenderness or t hyromegaly Respiratory Respiratory exam: Absent accessory muscle use, respiratory distress or wheezes Cardiovascular Cardiovascular exam: Present normal rate and rhythm; Absent JVD GI/Abdominal GI/Abdominal exam: Present normal bowel sounds and soft; Absent organomegaly or tenderness Extremities Exam Extremities exam: Present normal capillary refill and tenderness; Absent full ROM or normal inspection Additional comments: healed surgical scar of the right knee with lower leg/ankle cast. Tenderness to palpation with active and passive ROMs limited by pain. Neurological Exam Neurological exam: Present alert, CN II-XII intact and oriented X3; Absent motor sensory deficit Psychiatric Psychiatric exam: Present normal affect and normal mood; Absent anxious or depressed Skin Skin exam: Present dry and intact DATA Data Completed and Pending Labs: Labs from last 24 hours 07/21/21 07/21/21 07/21/21 14:03 14:03 14:03 WBC 9.2 RBC 4.75 Hgb 14.5 Hct 43.1 MCV 90.7 MCH 30.5 MCHC 33.6 RDW 12.0 Plt Count 299 MPV 8.5 Neut % (Auto) 71.4 Lymph % (Auto) 17.7 Sharkey % (Auto) 9.4 Eos % (Auto) 0.8 Baso % (Auto) 0.7 Lymph # (Auto) 1.62 Sharkey # (Auto) 0.86 Eos # (Auto) 0.07 Baso # (Auto) 0.06 Absolute Neutrophils 6.56 VBG Lactic Acid 1.8 Sodium Potassium Chloride Carbon Dioxide Anion Gap BUN Creatinine GFR Calculation Glucose Calcium Total Bilirubin AST ALT Alkaline Phosphatase Troponin T < 0.01 Total Protein Albumin Globulin Albumin/Globulin Ratio 07/21/21 14:02 WBC RBC Hgb Hct MCV MCH MCHC RDW Plt Count MPV Neut % (Auto) Lymph % (Auto) Sharkey % (Auto) Eos % (Auto) Baso % (Auto) Lymph # (Auto) Sharkey # (Auto) Eos # (Auto) Baso # (Auto) Absolute Neutrophils VBG Lactic Acid Sodium 139 Potassium 3.7 Chloride 100 Carbon Dioxide 26 Anion Gap 13.0 BUN 12 Creatinine 0.8 GFR Calculation 66 Glucose 113 H Calcium 10.0 Total Bilirubin 0.5 AST 18 ALT 11 Alkaline Phosphatase 79 Troponin T Total Protein 7.2 Albumin 4.0 Globulin 3.2 Albumin/Globulin Ratio 1.3 A/P Assessment and plan (1) Femur fracture, right: Status: Acute Qualifiers: Encounter type: initial encounter Fracture alignment: displaced Fracture type: closed (2) GERD (gastroesophageal reflux disease): Status: Chronic Qualifiers: Esophagitis presence: without esophagitis Qualified Code(s): K21.9 - Gastro-esophageal reflux disease without esophagitis (3) OAB (overactive bladder): Status: Acute (4) Osteoporosis: Status: Chronic Comment: 12/1996 Bone Density 12/27/96 Spine T-score -3.8. Bone Density 12/30/01--Spine T-score - 3.6. Bone Density 06/16/07--Spine T-score -2.6, Hip T-score -2.9. Normal Vit D level 07/01. Tolerates Evista well. Bone Density 09/20/12--Spine T-score -2.8; Hip T-score -3.1. Qualifiers: Osteoporosis type: age-related Presence of current pathological fracture: without current pathological fracture Qualified Code(s): M81.0 - Age- related osteoporosis without current pathological fracture; M81.0 - Age-related osteoporosis without current pathological fracture; M81.0 - Age-related osteoporosis without current pathological fracture (5) Hyperlipidemia: Status: Chronic Comment: Flushing & itching w/Niacin, changed to Zocor--off--resume Zocor Qualifiers: Hyperlipidemia type: mixed hyperlipidemia Qualified Code(s): E78.2 - Mixed hyperlipidemia; E78.2 - Mixed hyperlipidemia; E78.2 - Mixed hyperlipidemia (6) Dementia: Status: Acute Narrative A/P Narrative: Assessment and Plans: 1. Right distal femoral periprosthetic fracture, closed and displaced: Admit to inpatient med surg Consult orthopedic surgeon for potential surgical fixation tomorrow NPO after midnight with NS@100cc/hr Bedrest Tylenol PRN fever or mild pain Tramadol PRN moderate pain Morphine IV PRN severe pain cbc w/ auto diff in the morning to trend WBC Physical therapy Occupational therapy 2. Dementia: Donepezil Memantine 3. GERD: Continue oral PPI from home regimen 4. Overactive bladder: Oxybutynin 5. Mixed dyslipidemia: Continue statin therapy 6. Osteoporosis: Continue alendronate GI ppx: continue oral PPI from home regimen DVT ppx: SCDs Code status: Full Prognosis: stable Disposition: inpatient med surg Time Spent With Patient Time: Total time spent is greater than 50% in coordination of care (as documented) at patient's floor/unit and/or counseling patient: Total time spent with greater than 50% in coordination of care (as documented) at patient's floor/unit and/or counseling patient:: 25 - 35 minutes
[2021-07-21] MEDS ORDERED: IPRATROPIUM/ALBUTEROL 3 ML AMPUL.NEB NEB PRN (18:10)
[2021-07-21] MEDS ORDERED: ONDANSETRON 4 MG/2 ML VIAL IV PRN (18:10)
[2021-07-21] MEDS ORDERED: morphine 4 MG/ML VIAL IV PRN (18:10)
[2021-07-21] MEDS ORDERED: ZOLPIDEM 5 MG TABLET PO PRN (18:10)
[2021-07-21] MEDS ORDERED: morphine 4 MG/ML VIAL ONE (18:23)
[2021-07-21] MEDS: 0.9 % SODIUM CHLORIDE 1,000 ML IV SCH (18:23)
[2021-07-21] MEDS: 0.9 % SODIUM CHLORIDE 10 ML SYRINGE IV SCH (21:48)
[2021-07-21] MEDS: DOCUSATE SODIUM 100 MG CAPSULE PO SCH (21:51)
[2021-07-21] MEDS: SENNOSIDES 1 TABLET PO SCH (21:51)
[2021-07-21] MEDS: SIMVASTATIN 40 MG TABLET PO SCH (21:51)
[2021-07-21] MEDS: GABAPENTIN 100 MG CAPSULE PO SCH (21:53)
[2021-07-21] MEDS: traMADol 50 MG TABLET PO SCH (21:53)
[2021-07-21] MEDS: DONEPEZIL 10 MG TABLET PO SCH (21:54)
[2021-07-22] MEDS: 0.9 % SODIUM CHLORIDE 1,000 ML IV SCH ×2 (04:35→16:46)
[2021-07-22] MEDS: traMADol 50 MG TABLET PO SCH ×2 (05:38→14:02)
[2021-07-22] MEDS: 0.9 % SODIUM CHLORIDE 10 ML SYRINGE IV SCH ×3 (05:38→21:33)
[2021-07-22 06:36] LABS: Basophils # (Auto) 0.06 K/mcL (0.00-0.30); Basophils % (Auto) 0.6 % (0.0-2.0); Eosinophils # (Auto) 0.05 K/mcL (0.00-0.70); Eosinophils % (Auto) 0.5 % (0.0-7.0); Hematocrit 35.2 % (34.1-44.9); Hemoglobin 11.5 g/dL (11.2-15.7); Lymphocytes # (Auto) 1.85 K/mcL (1.50-4.80); Lymphocytes % (Auto) 19.3 % (15.5-49.0); Mean Cell Volume 92.4 fL (80.0-100.0); Mean Corpuscular HGB Conc 32.7 g/dL (31.0-36.0); Mean Platelet Volume 8.6 fL (7.4-10.4); Monocytes # (Auto) 0.98 K/mcL (0.10-0.90); Monocytes % (Auto) 10.2 % (1.0-12.0); Neutrophils % (Auto) 69.4 % (38.0-78.0); Platelet Count 252 K/mcL (140-440); RBC 3.81 M/mcL (3.59-5.38); Red Cell Distribution Width 12.2 % (11.5-14.5); WBC 9.6 K/mcL (4.5-11.0)
[2021-07-22 07:03] LABS: ALT/SGPT 8 U/L (<40); AST/SGOT 15 U/L (<32); Albumin 3.4 gm/dL (3.2-5.2); Albumin/Globulin Ratio 1.5 (1.0-2.3); Alkaline Phosphatase 63 U/L (39-117); Bilirubin,Total 0.6 mg/dL (0.1-1.0); Blood Urea Nitrogen 10 mg/dL (8-23); Calcium 8.5 mg/dL (8.6-10.4); Carbon Dioxide 24 mmol/L (22-30); Chloride 104 mmol/L (96-108); Globulin 2.3 gm/dL (2.2-3.7); Glomerular Filtration Rate 82; Glucose 107 mg/dL (70-105)
[2021-07-22] MEDS: OMEPRAZOLE 20 MG CAPSULE PO SCH (07:36)
[2021-07-22] MEDS: INDAPAMIDE 2.5 MG TABLET PO SCH (07:47)
[2021-07-22] MEDS: DOCUSATE SODIUM 100 MG CAPSULE PO SCH ×2 (07:48→21:27)
[2021-07-22] MEDS: MULTIVIT,THER IRON,CA,FA & MIN 1 TABLET PO SCH (07:48)
[2021-07-22] MEDS: CALCIUM W/VIT D3 500 MG TABLET PO SCH (07:48)
[2021-07-22] MEDS: ACETAMINOPHEN 325 MG TABLET PO PRN ×2 (08:41→17:23)
[2021-07-22] MEDS: MEMANTINE 10 MG TABLET PO SCH (08:42)
[2021-07-22] MEDS: GABAPENTIN 100 MG CAPSULE PO SCH ×3 (08:44→21:27)
[2021-07-22] MEDS: OXYBUTYNIN CHLORIDE 5 MG TABLET PO SCH (08:45)
--- NOTE | 2021-07-22 09:51 | Internal Med Progress Note ---
SUBJECTIVE Subjective Patient information: Note initiated : 07/22/21 at 9:48 am Service Date, if different from initiated Date: [] Patient: Kateryna Oconnor a 85 y/o F admitted on 07/21/21 for syncope, right knee pain. Chief Complaint: [right femoral fracture] Interval history: Ms. Oconnor is a 85 year old F history of dementia, overactive bladder, mixed dyslipidemia, GERD, status post right knee total arthroplasty, presenting with fall with resultant right knee fractures. Earlier this morning at 11 AM, when patient was ambulating in the house preparing for lunch, she felt dizzy with lightheadedness and she fell and landed on her right knee. She denies any loss of consciousness. She denies any confusions or lethargy. She denies any chest pain or palpitations. She denies any headaches. She denies any shortness of breath. She denies any incontinences. She is currently company of 3 out of 10 cramping constant pain of her right knee. Vital signs within normal limits. Labs also largely within normal limits. WBC 9.2. Troponin less than 0.01. Right knee x-ray showing previous right total knee arthroplasty, together with mildly displaced and posteriorly angulated periprosthetic distal right femoral fracture. 07/22: No major overnight events. Denies any right thigh pain. Been NPO since midnight. Pending surgery today. Constitutional Vitals: Vital Signs Temp Pulse Resp BP Pulse Ox 36.2 C 68 10 L 101/48 91 07/22/21 07:38 07/22/21 07:38 07/22/21 08:00 07/22/21 07:38 07/22/21 08:00 Period Temp Pulse Resp BP Sys/Springer Pulse Ox Last 24 Hr 36.2 C-36.6 C 60-93 05-13 75-119/39-81 88-99 Intake and Output 07/21/21 07/22/21 07/22/21 21:59 05:59 13:59 Intake Total 1000 1000 Output Total 1 Balance 1000 999 Weight 57.153 kg Intake & Output: Intake & Output 07/21/21 07/22/21 07/22/21 21:59 05:59 13:59 Intake Total 1000 1000 Output Total 1 Balance 1000 999 Weight 57.153 kg Intake: IV 1000 1000 Sodium Chloride 0.9% 1,000 ml @ 1000 1000 100 mls/hr IV .Q10H PENDING SALE TO [facility] Rx#: [id number] Oral 0 Output: # of times incontinent of urine 1 Other: Meal Dinner Percent of Meal Consumed 25% Feeding Ability Independent # Voids 1 Head Head exam: Present atraumatic and normal inspection Eye Eye exam: Present normal appearance ENT ENT exam: Present mucous membranes moist, normal exam and normal external ear exam Neck Neck exam: Present normal inspection Respiratory Respiratory exam: Present normal respiratory exam Cardiovascular Cardiovascular exam: Present normal rate and rhythm GI/Abdominal GI/Abdominal exam: Present normal bowel sounds Extremities Exam Extremities exam: Present tenderness; Absent full ROM or normal inspection Back Exam Back exam: Present normal inspection Neurological Exam Neurological exam: Present alert and oriented X3 Skin Skin exam: Present intact and warm OBJ DATA Labs CBC & Chem 7: 07/22/21 05:54 07/22/21 05:54 Labs: Abnormal Lab Results 07/22/21 07/22/21 07/21/21 05:54 05:54 14:02 Hickman # (Auto) 0.98 H Glucose 107 H 113 H Calcium 8.5 L Magnesium 1.5 L Total Protein 5.7 L Meds: Medications Acetaminophen (Acetaminophen 325 Mg Tablet) 650 mg PO Q6HP PRN; Protocol PRN Reason: Per Pain Protocol/Fever > 101 Last Admin: 07/22/21 08:41 Dose: 650 mg Documented by: Albuterol/Ipratropium (Ipratropium/Albuterol 3 Ml Ampul.Neb) 3 ml NEB Q4HP PRN PRN Reason: Wheezing Alendronate Sodium (Alendronate Sodium 70 Mg Tablet) 70 mg PO Mo@0730 PENDING SALE TO [facility] Calcium/Vitamin D (Calcium W/Vit D3 500 Mg Tablet) 1 mg PO DAILY PENDING SALE TO [facility] Last Admin: 07/22/21 07:48 Dose: Not Given Documented by: Docusate Sodium (Docusate Sodium 100 Mg Capsule) 100 mg PO BID PENDING SALE TO [facility] Last Admin: 07/22/21 07:48 Dose: Not Given Documented by: Donepezil HCl (Donepezil 10 Mg Tablet) 5 mg PO QHS PENDING SALE TO [facility] Last Admin: 07/21/21 21:54 Dose: 5 mg Documented by: Gabapentin (Gabapentin 100 Mg Capsule) 100 mg PO TID PENDING SALE TO [facility] Last Admin: 07/22/21 08:44 Dose: 100 mg Documented by: Sodium Chloride (Sodium Chloride 0.9%) 1,000 mls @ 100 mls/hr IV .Q10H PENDING SALE TO [facility] Last Admin: 07/22/21 04:35 Dose: 100 mls/hr Documented by: Indapamide (Indapamide 2.5 Mg Tablet) 2.5 mg PO QAM PENDING SALE TO [facility] Last Admin: 07/22/21 07:47 Dose: Not Given Documented by: Iron Carb/Multivit/Pollution Control Technician/Folic Acid (Multivit,Ther Iron,Ca,Fa & Min 1 Tablet) 1 tab PO DAILY PENDING SALE TO [facility] Last Admin: 07/22/21 07:48 Dose: Not Given Documented by: Memantine (Memantine 10 Mg Tablet) [facility] [place] Last Admin: 07/22/21 08:42 Dose: 5 mg Documented by: Morphine Sulfate (Morphine 4 Mg/Ml Vial) 4 mg IV Q4HP PRN; Protocol PRN Reason: Per Pain Protocol Last Admin: 07/21/21 18:21 Dose: 4 mg Documented by: Omeprazole ([facility] 20 Mg Capsule) [facility] Last Admin: 07/22/21 07:36 Dose: Not Given Documented by: Ondansetron HCl (Ondansetron 4 Mg/2 Ml Vial) 4 mg IV Q6HP PRN PRN Reason: Nausea And Vomiting Last Admin: 07/22/21 03:44 Dose: 4 mg Documented by: Oxybutynin Chloride (Oxybutynin Chloride 5 Mg Tablet) 5 mg PO QDAY PENDING SALE TO [facility] Last Admin: 07/22/21 08:45 Dose: 5 mg Documented by: Senna (Sennosides 1 Tablet) 2 tab PO HS PENDING SALE TO [facility] Last Admin: 07/21/21 21:51 Dose: 2 tab Documented by: Simvastatin (Simvastatin 40 Mg Tablet) 40 mg PO QPM PENDING SALE TO [facility] Last Admin: 07/21/21 21:51 Dose: 40 mg Documented by: Sodium Chloride (0.9 % Sodium Chloride 10 Ml Syringe) 10 ml IV Q8 PENDING SALE TO [facility] Last Admin: 07/22/21 05:38 Dose: Not Given Documented by: Tramadol HCl (Tramadol 50 Mg Tablet) 50 mg PO Q8 PENDING SALE TO [facility]; Protocol Last Admin: 07/22/21 05:38 Dose: Not Given Documented by: Zolpidem Tartrate (Zolpidem 5 Mg Tablet) 5 mg PO HSP PRN PRN Reason: Insomnia A/P Assessment and plan (1) Femur fracture, right: Status: Acute Qualifiers: Encounter type: initial encounter Fracture alignment: displaced Fracture type: closed (2) GERD (gastroesophageal reflux disease): Status: Chronic Qualifiers: Esophagitis presence: without esophagitis Qualified Code(s): K21.9 - Gastro-esophageal reflux disease without esophagitis (3) OAB (overactive bladder): Status: Acute (4) Osteoporosis: Status: Chronic Comment: 12/1996 Bone Density 12/27/96 Spine T-score -3.8. Bone Density 12/30/01--Spine T-score - 3.6. Bone Density 06/16/07--Spine T-score -2.6, Hip T-score -2.9. Normal Vit D level 07/01. Tolerates Evista well. Bone Density 09/20/12--Spine T-score -2.8; Hip T-score -3.1. Qualifiers: Osteoporosis type: age-related Presence of current pathological fracture: without current pathological fracture Qualified Code(s): M81.0 - Age- related osteoporosis without current pathological fracture; M81.0 - Age-related osteoporosis without current pathological fracture; M81.0 - Age-related osteoporosis without current pathological fracture (5) Hyperlipidemia: Status: Chronic Comment: Flushing & itching w/Niacin, changed to Zocor--off--resume Zocor Qualifiers: Hyperlipidemia type: mixed hyperlipidemia Qualified Code(s): E78.2 - Mixed hyperlipidemia; E78.2 - Mixed hyperlipidemia; E78.2 - Mixed hyperlipidemia (6) Dementia: Status: Acute (7) Hypomagnesemia: Status: Acute Narrative A/P Narrative: Assessment and Plans: 1. Right distal femoral periprosthetic fracture, closed and displaced: Stays in inpatient med surg Consult orthopedic surgeon for potential surgical fixation today NPO after midnight with NS@100cc/hr Bedrest Tylenol PRN fever or mild pain Tramadol PRN moderate pain Morphine IV PRN severe pain cbc w/ auto diff in the morning to trend WBC Physical therapy Occupational therapy 2. Dementia: Donepezil Memantine 3. GERD: Continue oral PPI from home regimen 4. Overactive bladder: Oxybutynin 5. Mixed dyslipidemia: Continue statin therapy 6. Osteoporosis: Continue alendronate 7. Hypomagnesemia: MgSO4 2gm IV once Repeat serum Mg level in the morning and repeat replacement as needed GI ppx: continue oral PPI from home regimen DVT ppx: SCDs Code status: Full Prognosis: stable Disposition: inpatient med surg Time Spent With Patient Time: Total time spent is greater than 50% in coordination of care (as documented) at patient's floor/unit and/or counseling patient: Total time spent with greater than 50% in coordination of care (as documented) at patient's floor/unit and/or counseling patient:: 25 - 35 minutes QUALITY VTE Deep Vein Thrombosis/Pulmonary Embolism Present on Admission: No
[2021-07-22] MEDS ORDERED: MAGNESIUM SULFATE 2 GM/50 ML BAG IV ONE (11:00)
[2021-07-22] MEDS ORDERED: traMADol 50 MG TABLET PO PRN (16:24)
[2021-07-22] MEDS: SIMVASTATIN 40 MG TABLET PO SCH (21:27)
[2021-07-22] MEDS: DONEPEZIL 10 MG TABLET PO SCH (21:27)
[2021-07-22] MEDS: SENNOSIDES 1 TABLET PO SCH (21:27)
[2021-07-23] MEDS: ACETAMINOPHEN 325 MG TABLET PO PRN (00:16)
[2021-07-23] MEDS: 0.9 % SODIUM CHLORIDE 1,000 ML IV SCH ×3 (00:34→12:49)
[2021-07-23] MEDS: 0.9 % SODIUM CHLORIDE 10 ML SYRINGE IV SCH ×4 (06:00→21:49)
[2021-07-23 07:00] LABS: Basophils # (Auto) 0.05 K/mcL (0.00-0.30); Basophils % (Auto) 0.5 % (0.0-2.0); Eosinophils # (Auto) 0.17 K/mcL (0.00-0.70); Eosinophils % (Auto) 1.8 % (0.0-7.0); Hematocrit 33.4 % (34.1-44.9); Hemoglobin 10.9 g/dL (11.2-15.7); Lymphocytes # (Auto) 2.45 K/mcL (1.50-4.80); Lymphocytes % (Auto) 26.2 % (15.5-49.0); Mean Cell Volume 92.8 fL (80.0-100.0); Mean Corpuscular HGB Conc 32.6 g/dL (31.0-36.0); Mean Platelet Volume 8.7 fL (7.4-10.4); Monocytes # (Auto) 0.99 K/mcL (0.10-0.90); Monocytes % (Auto) 10.6 % (1.0-12.0); Neutrophils % (Auto) 60.9 % (38.0-78.0); Platelet Count 247 K/mcL (140-440); WBC 9.3 K/mcL (4.5-11.0)
[2021-07-23] MEDS: OMEPRAZOLE 20 MG CAPSULE PO SCH (07:19)
[2021-07-23 07:36] LABS: ALT/SGPT 8 U/L (<40); AST/SGOT 16 U/L (<32); Albumin/Globulin Ratio 1.3 (1.0-2.3); Alkaline Phosphatase 63 U/L (39-117); Bilirubin,Total 0.5 mg/dL (0.1-1.0); Blood Urea Nitrogen 5 mg/dL (8-23); Calcium 8.2 mg/dL (8.6-10.4); Carbon Dioxide 27 mmol/L (22-30); Chloride 106 mmol/L (96-108); Globulin 2.4 gm/dL (2.2-3.7); Glomerular Filtration Rate 82; Glucose 100 mg/dL (70-105)
[2021-07-23] MEDS: DOCUSATE SODIUM 100 MG CAPSULE PO SCH ×2 (08:37→21:48)
[2021-07-23] MEDS: OXYBUTYNIN CHLORIDE 5 MG TABLET PO SCH (08:37)
[2021-07-23] MEDS: INDAPAMIDE 2.5 MG TABLET PO SCH (08:37)
[2021-07-23] MEDS: CALCIUM W/VIT D3 500 MG TABLET PO SCH (08:37)
[2021-07-23] MEDS: MEMANTINE 10 MG TABLET PO SCH (08:38)
[2021-07-23] MEDS: MULTIVIT,THER IRON,CA,FA & MIN 1 TABLET PO SCH (08:38)
[2021-07-23] MEDS: GABAPENTIN 100 MG CAPSULE PO SCH ×3 (08:38→21:48)
--- NOTE | 2021-07-23 11:53 | Internal Med Progress Note ---
SUBJECTIVE Subjective Patient information: Note initiated : 07/23/21 at 11:52 am Service Date, if different from initiated Date: [] Patient: Kateryna Oconnor a 85 y/o F admitted on 07/21/21 for syncope, right knee pain. Chief Complaint: [] Interval history: Ms. Oconnor is a 85 year old F history of dementia, overactive bladder, mixed dyslipidemia, GERD, status post right knee total arthroplasty, presenting with fall with resultant right knee fractures. Earlier this morning at 11 AM, when patient was ambulating in the house preparing for lunch, she felt dizzy with lightheadedness and she fell and landed on her right knee. She denies any loss of consciousness. She denies any confusions or lethargy. She denies any chest pain or palpitations. She denies any headaches. She denies any shortness of breath. She denies any incontinences. She is currently company of 3 out of 10 cramping constant pain of her right knee. Vital signs within normal limits. Labs also largely within normal limits. WBC 9.2. Troponin less than 0.01. Right knee x-ray showing previous right total knee arthroplasty, together with mildly displaced and posteriorly angulated periprosthetic distal right femoral fracture. 07/22: No major overnight events. Denies any right thigh pain. Been NPO since midnight. Pending surgery today. 07/23: Surgery did not happen yesterday due to parts unavailability. Surgery scheduled for today afternoon. Constitutional Vitals: Vital Signs Temp Pulse Resp BP Pulse Ox 36.9 C 70 20 136/55 94 07/23/21 08:00 07/23/21 08:00 07/23/21 08:00 07/23/21 08:00 07/23/21 08:00 Period Temp Pulse Resp BP Sys/Springer Pulse Ox Last 24 Hr 36.9 C-37.3 C 61-82 10-20 120-136/49-70 92-96 Intake and Output 07/22/21 07/23/21 07/23/21 21:59 05:59 13:59 Intake Total 2850 1300 Output Total 172 325 500 Balance 2678 975 -500 Weight 58.513 kg Intake & Output: Intake & Output 07/22/21 07/23/21 07/23/21 21:59 05:59 13:59 Intake Total 2850 1300 Output Total 172 325 500 Balance 2678 975 -500 Weight 58.513 kg Intake: IV 1050 1000 Sodium Chloride 0.9% 1,000 ml @ 1000 1000 100 mls/hr IV .Q10H [facility] Rx#: [id number] Oral 750 300 IV - Manual Only 1050 Output: Urine Catheter Amount 170 500 Void Amount 325 # of times incontinent of urine 2 Other: Meal Lunch Percent of Meal Consumed 50% Feeding Ability Independent Urine Appearance Clear Clear Urine Color Tea Colored Dark Yellow Bright Yellow Urine Odor Normal Normal # Bowel Movements 0 Head Head exam: Present atraumatic and normal inspection Eye Eye exam: Present normal appearance ENT ENT exam: Present mucous membranes moist, normal exam and normal external ear exam Neck Neck exam: Present normal inspection Respiratory Respiratory exam: Present normal respiratory exam Cardiovascular Cardiovascular exam: Present normal rate and rhythm GI/Abdominal GI/Abdominal exam: Present normal bowel sounds Extremities Exam Extremities exam: Present tenderness; Absent full ROM or normal inspection Additional comments: Tenderness to palpation right thigh/knee Back Exam Back exam: Present normal inspection Neurological Exam Neurological exam: Present alert and oriented X3 Skin Skin exam: Present intact and warm OBJ DATA Labs CBC & Chem 7: 07/23/21 05:25 07/23/21 05:25 Labs: Abnormal Lab Results 07/23/21 07/23/21 07/22/21 05:25 05:25 05:54 Hgb 10.9 L Hct 33.4 L [place] # (Auto) 0.99 H Potassium 3.1 L Anion Gap 7.0 L BUN 5 L Glucose 107 H Calcium 8.2 L 8.5 L Magnesium 1.5 L Total Protein 5.4 L 5.7 L Albumin 3.0 L 07/22/21 07/21/21 05:54 14:02 Hgb Hct [place] # (Auto) 0.98 H Potassium Anion Gap BUN Glucose 113 H Calcium Magnesium Total Protein Albumin Meds: Medications Acetaminophen (Acetaminophen 325 Mg Tablet) 650 mg PO Q6HP PRN; Protocol PRN Reason: Per Pain Protocol/Fever > 101 Last Admin: 07/23/21 00:16 Dose: 650 mg Documented by: Albuterol/Ipratropium (Ipratropium/Albuterol 3 Ml Ampul.Neb) 3 ml NEB Q4HP PRN PRN Reason: Wheezing Alendronate Sodium (Alendronate Sodium 70 Mg Tablet) 70 mg PO Mo@0730 [facility] Calcium/Vitamin D (Calcium W/Vit D3 500 Mg Tablet) 1 mg PO DAILY [facility] Last Admin: 07/23/21 08:37 Dose: Not Given Documented by: Docusate Sodium (Docusate Sodium 100 Mg Capsule) 100 mg PO BID [facility] Last Admin: 07/23/21 08:37 Dose: Not Given Documented by: Donepezil HCl (Donepezil 10 Mg Tablet) 5 mg PO QHS [facility] Last Admin: 07/22/21 21:27 Dose: 5 mg Documented by: Gabapentin (Gabapentin 100 Mg Capsule) 100 mg PO TID [facility] Last Admin: 07/23/21 08:38 Dose: Not Given Documented by: Sodium Chloride (Sodium Chloride 0.9%) 1,000 mls @ 100 mls/hr IV .Q10H [facility] Last Admin: 07/23/21 02:57 Dose: 100 mls/hr Documented by: Indapamide (Indapamide 2.5 Mg Tablet) 2.5 mg PO [facility] Last Admin: 07/23/21 08:37 Dose: Not Given Documented by: Iron Carb/Multivit/Entertainment Reporter/Folic Acid (Multivit,Ther Iron,Ca,Fa & Min 1 Tablet) 1 tab PO DAILY [facility] Last Admin: 07/23/21 08:38 Dose: Not Given Documented by: Memantine (Memantine 10 Mg Tablet) [facility] Last Admin: 07/23/21 08:38 Dose: Not Given Documented by: Morphine Sulfate (Morphine 4 Mg/Ml Vial) 4 mg IV Q4HP PRN; Protocol PRN Reason: Per Pain Protocol Last Admin: 07/21/21 18:21 Dose: 4 mg Documented by: Omeprazole ([facility] Mg [facility]apsule) [facility] Last Admin: 07/23/21 07:19 Dose: Not Given Documented by: Ondansetron HCl (Ondansetron 4 Mg/2 Ml Vial) 4 mg IV Q6HP PRN PRN Reason: Nausea And Vomiting Last Admin: 07/22/21 03:44 Dose: 4 mg Documented by: Oxybutynin Chloride (Oxybutynin Chloride 5 Mg Tablet) 5 mg PO QDAY [facility] Last Admin: 07/23/21 08:37 Dose: Not Given Documented by: Senna (Sennosides 1 Tablet) 2 tab PO HS [facility] Last Admin: 07/22/21 21:27 Dose: 2 tab Documented by: Simvastatin (Simvastatin 40 Mg Tablet) 40 mg PO QPM [facility] Last Admin: 07/22/21 21:27 Dose: 40 mg Documented by: Sodium Chloride (0.9 % Sodium Chloride 10 Ml Syringe) 10 ml IV Q8 [facility] Last Admin: 07/23/21 06:00 Dose: Not Given Documented by: Tramadol HCl (Tramadol 50 Mg Tablet) 50 mg PO Q8HP PRN; Protocol PRN Reason: Pain Zolpidem Tartrate (Zolpidem 5 Mg Tablet) 5 mg PO HSP PRN PRN Reason: Insomnia A/P Assessment and plan (1) Femur fracture, right: Status: Acute Qualifiers: Encounter type: initial encounter Fracture alignment: displaced Fracture type: closed (2) GERD (gastroesophageal reflux disease): Status: Chronic Qualifiers: Esophagitis presence: without esophagitis Qualified Code(s): K21.9 - Gastro-esophageal reflux disease without esophagitis (3) OAB (overactive bladder): Status: Acute (4) Osteoporosis: Status: Chronic Comment: 12/1996 Bone Density 12/27/96 Spine T-score -3.8. Bone Density 12/30/01--Spine T-score - 3.6. Bone Density 06/16/07--Spine T-score -2.6, Hip T-score -2.9. Normal Vit D level 07/01. Tolerates Evista well. Bone Density 09/20/12--Spine T-score -2.8; Hip T-score -3.1. Qualifiers: Osteoporosis type: age-related Presence of current pathological fracture: without current pathological fracture Qualified Code(s): M81.0 - Age- related osteoporosis without current pathological fracture; M81.0 - Age-related osteoporosis without current pathological fracture; M81.0 - Age-related osteoporosis without current pathological fracture (5) Hyperlipidemia: Status: Chronic Comment: Flushing & itching w/Niacin, changed to Zocor--off--resume Zocor Qualifiers: Hyperlipidemia type: mixed hyperlipidemia Qualified Code(s): E78.2 - Mixed hyperlipidemia; E78.2 - Mixed hyperlipidemia; E78.2 - Mixed hyperlipidemia (6) Dementia: Status: Acute (7) Hypomagnesemia: Status: Acute Narrative A/P Narrative: Assessment and Plans: 1. Right distal femoral periprosthetic fracture, closed and displaced: Stays in inpatient med surg Consult orthopedic surgeon for potential surgical fixation today NPO after midnight with NS@100cc/hr Bedrest Tylenol PRN fever or mild pain Tramadol PRN moderate pain Morphine IV PRN severe pain cbc w/ auto diff in the morning to trend WBC Physical therapy Occupational therapy 2. Dementia: Donepezil Memantine 3. GERD: Continue oral PPI from home regimen 4. Overactive bladder: Oxybutynin 5. Mixed dyslipidemia: Continue statin therapy 6. Osteoporosis: Continue alendronate 7. Hypomagnesemia: MgSO4 2gm IV once Repeat serum Mg level in the morning and repeat replacement as needed GI ppx: continue oral PPI from home regimen DVT ppx: SCDs Code status: Full Prognosis: stable Disposition: inpatient med surg Time Spent With Patient Time: Total time spent is greater than 50% in coordination of care (as documented) at patient's floor/unit and/or counseling patient: Total time spent with greater than 50% in coordination of care (as documented) at patient's floor/unit and/or counseling patient:: 25 - 35 minutes QUALITY VTE Deep Vein Thrombosis/Pulmonary Embolism Present on Admission: No
[2021-07-23] MEDS ORDERED: POTASSIUM CHLORIDE 40 MEQ in DEXTROSE 5% IN WATER 500 ML IV ONE ×2 (13:42→13:45)
[2021-07-23] MEDS ORDERED: ALBUMIN HUMAN 12.5 GM/50 ML BAG IV ONE (13:45)
[2021-07-23 13:56] LABS: Appearance,Urine CLEAR (Clear); Bacteria,Urine FEW /hpf (0); Bilirubin,Urine Negative (Negative); Color,Urine YELLOW; Culture Indicated,Urine Yes; Glucose,Urine (UA) Negative (Negative); Ketones,Urine Negative (Negative); Leukocyte Esterase,Urine 75 /uL (Negative); Mucus,Urine FEW /hpf; Nitrate,Urine Negative (Negative); Protein,Urine Negative (Negative); Urine Blood Negative (Negative); Urine RBC < 1 /hpf (0-3); Urine Squamous Epithelial Cell < 1 /hpf (0-4); Urine WBC 5 /hpf (0-4); Urobilinogen,Urine Negative
[2021-07-23] MEDS ORDERED: ceFAZolin 2 GM in DEXTROSE 5% IN WATER 50 ML IV SCH (15:15)
[2021-07-23] MEDS ORDERED: SUCCINYLCHOLINE 20 MG/ML ML IV ONE (15:22)
[2021-07-23] MEDS ORDERED: SUGAMMADEX SODIUM 200 MG/2 ML VIAL IV ONE (15:22)
[2021-07-23] MEDS ORDERED: ePHEDrine 50 MG/5 ML SYRINGE (ANEST) IV ONE (15:22)
[2021-07-23] MEDS ORDERED: MAGNESIUM SULFATE 2 GM/50 ML BAG IV ONE (15:22)
[2021-07-23] MEDS ORDERED: DEXAMETHASONE 10 MG/ML VIAL ONE (15:22)
[2021-07-23] MEDS ORDERED: ALBUMIN HUMAN 25 GM/100 ML BAG IV ONE (15:22)
[2021-07-23] MEDS ORDERED: ROPIVACAINE HCL/PF 20 ML VIAL IJ ONE (15:22)
[2021-07-23] MEDS ORDERED: PROPOFOL 200 MG/20 ML VIAL IV ONE (15:22)
[2021-07-23] MEDS ORDERED: ONDANSETRON 4 MG/2 ML VIAL ONE (15:22)
[2021-07-23] MEDS ORDERED: fentaNYL 100 MCG/2 ML VIAL IV ONE (15:22)
[2021-07-23] MEDS ORDERED: KETAMINE 50 MG/ML Syringe (ANEST) IV ONE (15:22)
[2021-07-23] MEDS ORDERED: LIDOCAINE HCL/PF 100 MG/5 ML SYRINGE IV ONE (15:22)
[2021-07-23] MEDS ORDERED: PHENYLephrine 1 MG/10 ML SYRINGE (ANEST) ONE (15:22)
[2021-07-23] MEDS ORDERED: ROCURONIUM 10 MG/ML ML IV ONE (15:22)
[2021-07-23] MEDS ORDERED: TRANEXAMIC ACID 1,000 MG/10 ML VIAL ONE (15:22)
[2021-07-23] MEDS ORDERED: 0.9 % SODIUM CHLORIDE 9 ML, KETOROLAC 30 MG, ROPIVACAINE HCL/PF 49.5 ML, EPINEPHrine 0.... IJ ONE (15:57)
[2021-07-23] MEDS ORDERED: fentaNYL 100 MCG/2 ML VIAL IV PRN (16:57)
[2021-07-23] MEDS ORDERED: PROMETHAZINE 25 MG/ML VIAL IV PRN (16:57)
[2021-07-23] MEDS ORDERED: NALOXONE HCL 0.4 MG/ML VIAL IV PRN (16:57)
[2021-07-23] MEDS ORDERED: LACTATED RINGERS 250 ML IV PRN (16:57)
[2021-07-23] MEDS ORDERED: IPRATROPIUM/ALBUTEROL 3 ML AMPUL.NEB NEB PRN (16:57)
[2021-07-23] MEDS ORDERED: MEPERIDINE 25 MG/ML VIAL IV PRN (16:57)
[2021-07-23] MEDS ORDERED: ONDANSETRON 4 MG/2 ML VIAL IV PRN ×2 (16:57→17:13)
[2021-07-23] MEDS ORDERED: BENZOCAINE/MENTHOL 1 LOZENGE PO PRN ×2 (16:57→17:13)
[2021-07-23] MEDS ORDERED: ACETAMINOPHEN 850 MG/85 ML BAG IV ONE (16:57)
[2021-07-23] MEDS ORDERED: LACTATED RINGERS 1,000 ML IV SCH (17:00)
[2021-07-23] MEDS ORDERED: GENTAMICIN SULFATE 800 MG/20 ML VIAL IR ONE (17:10)
[2021-07-23] MEDS ORDERED: HYDROmorphone 1 MG/ML SYRINGE IV PRN (17:13)
[2021-07-23] MEDS ORDERED: BISACODYL 10 MG SUPP.RECT PR PRN (17:13)
[2021-07-23] MEDS ORDERED: TEMAZEPAM 15 MG CAPSULE PO PRN (17:13)
[2021-07-23] MEDS ORDERED: ACETAMINOPHEN 325 MG TABLET PO PRN (17:13)
[2021-07-23] MEDS ORDERED: HYDROcodone/APAP 5/325MG TABLET PO PRN (17:13)
[2021-07-23] MEDS ORDERED: MAGNESIUM HYDROXIDE 30 ML ORAL.SUSP PO PRN (17:13)
[2021-07-23] MEDS ORDERED: POLYETHYLENE GLYCOL 3350 17 GM PACKET PO PRN (17:13)
[2021-07-23] MEDS ORDERED: TRANEXAMIC ACID 1,000 MG/10 ML VIAL IV SCH (17:13)
--- NOTE | 2021-07-23 17:13 | Brief Operative Note ---
Brief Operative Note Date of procedure: 07/23/21 Pre-op diagnosis: right supracondylar femur fx Post-op diagnosis: same Procedure: right supracondylar femur fx orif and revision tka of 2 components Grafts/Implants: Yes Anesthesia: GETA Complications Description: none Surgeon: Jeramie Morrow Cloth Examiner Hand: Ruddy Mae Estimated blood loss (cc): 20 Tourniquet Time (Minutes): 51 Specimens Removed/Pathology: none sent Condition: stable Disposition: PACU
--- NOTE | 2021-07-23 17:21 | Discharge Plan ---
Discharge Instructions - TKA Patient Instructions Total Knee Protocol: For Total Knee: Start ROM DONAVON with stationary bike or rocking chair. Work on gaining full extension of knee. Posterior dislocation precautions provided. Hip abductor strengthening and gait training instructions provided. Apply Cryocuff as instructed. Dressing Care: May shower in 3 days and Aquacel Ag - leave on for 5 days Discharge Plan Patient/Caregiver Discharge Instructions Activity: non-weight bearing Diet: Regular Diet Prescriptions: New hydrocodone-acetaminophen 5-325 mg Tablet 1 - 2 tab PO Q4H PRN (Reason: Pain) Qty: 30 0RF aspirin [Ecotrin Low Strength] 81 mg tablet,delayed release (DR/EC) 81 mg PO BID Qty: 60 0RF docusate sodium 100 mg capsule 100 mg PO BID Qty: 60 0RF No Action memantine [Namenda] 5 mg tablet 5 mg PO QAM Qty: 90 1RF oxybutynin chloride 5 mg tablet 5 mg PO QDAY Qty: 90 0RF indapamide 2.5 mg tablet 2.5 mg PO QAM Qty: 90 0RF donepezil 5 mg tablet 5 mg PO QHS Qty: 90 0RF simvastatin 40 mg tablet 40 mg PO QPM Qty: 90 0RF omeprazole 20 mg capsule,delayed release(DR/EC) 20 mg PO QAM Qty: 90 0RF Rx Instructions: TAKE BEFORE BREAKFAST FOR STOMACH ISSUE alendronate [Fosamax] 70 mg tablet 70 mg PO QWEEK Qty: 14 2RF multivitamin 1 EACH tablet 1 each PO DAILY 0RF Other Ambulatory Orders: Physical Therapy DC - TKA (Routine) Location: None Selected Ordered By: Ruddy Mae Toilet Riser Discharge Order (ONCE) Location: None Selected Ordered By: Ruddy Mae Walker (ONCE) Location: None Selected Ordered By: Ruddy Mae Follow Up Plan Follow up with: Mavis Crowder DO [Primary Care Provider] - Patient Disposition: Xfer SNF Prognosis: Fair Rehab Potential: Fair I certify that the patient requires SNF services: Yes Overall status at discharge: patient is progressing back to baseline Discharge Orders: Discharge Order (Routine); Ordered 07/25/21 Ordered By: Ruddy Mae Discharge Comment: When cleared Medically by Hospitalist
--- NOTE | 2021-07-23 18:26 | XRay Report ---
INDICATION: Post-Op Total Knee TECHNIQUE: AP and crosstable lateral right knee COMPARISON: Previous examination dated 07/21/2021 FINDINGS:History of previous right knee replacement and periprosthetic fracture of the distal right femur Interval revision of right total knee arthroplasty. There is resection of the distal right femur and placement of prosthetic joint with one long femoral stem. Alignment is anatomic. There is postsurgical soft tissue gas and there are skin brendan anteriorly. IMPRESSION: Status post revision of right total knee arthroplasty Interpreted and Authenticated by: Marcelo Waggoner 07/23/21
--- NOTE | 2021-07-23 19:08 | Consultation ---
DATE OF CONSULTATION: 07/23/2021 HISTORY OF PRESENT ILLNESS: This is a very pleasant 85-year-old female who had a fall onto her right knee which had a prior total knee arthroplasty. The bone was very osteopenic and osteoporotic. For this reason, there was severity of the fracture that was severely comminuted without significant bone attachment to the total knee femoral component. She had revision stem on the tibia, which did not break. She is unable to ambulate and was seen in the emergency room. PAST MEDICAL HISTORY: She has been fairly healthy. She does have a history of some dementia. They do note that she has been a community ambulator, they had been living together as and . Overnight, she had no significant events. She has been n.p.o. She has otherwise been able to eat and drink without difficulty. MEDICATIONS: Significant for, 1. Albuterol for asthma or wheezing. 2. She takes gabapentin for chronic pain. 3. She takes iron for anemia. 4. Morphine for chronic pain. 5. Omeprazole 20 mg q.a.m. scheduled. 6. Simvastatin for cholesterol. 7. Tramadol for chronic pain. 8. Zolpidem 5 mg p.o. at bedtime for insomnia. ALLERGIES: NIACIN. ASSESSMENT AND PLAN: She has right femur fracture, periprosthetic, will need to be treated with a tumor prosthesis reflux disease, treated with her omeprazole. Overactive bladder. She has been treated for osteoporosis is chronic. She takes minerals and vitamin D3. Her T-score was -3.8 in 2001 and more recently a 2.9 ____. She has hyperlipidemia as noted above with dementia. PHYSICAL EXAMINATION: GENERAL: Very pleasant elderly female who is alert and oriented today to person, place, and thing. MUSCULOSKELETAL: She complains of significant pain in the right leg, unable to bear weight and unable to really move. There was no brace in place. She does have some slight diminished sensation and angulation of the femur. LUNGS: Clear to auscultation. CARDIOVASCULAR: Regular rate and rhythm. No murmurs, rubs, or gallops. EXTREMITIES: Her foot is pink as we manipulate the leg and place it into a knee immobilizer. IMAGING: She has x-rays that show a comminuted fracture of the distal femur that extends into the prosthesis with a severely osteopenic bone, intact tibial baseplate, well positioned. DIAGNOSES: Periprosthetic fracture with a supracondylar fracture of the right femur. Treatment will be open reduction and internal fixation of the fracture as well as revision of the femoral component and the poly liner. This would be a tumor prosthesis and the patient and were explained the recovery. This is the quickest way to get her back walking. She would be partially weightbearing with a knee immobilizer for a few weeks, and then, we will progress her to full weightbearing after that but it would immediately help the pain. There are risk of blood clots, vascular injuries with these type of prosthesis bleeding, they are all real possibilities. Heart attacks and strokes are also possible with any anesthesia. They agreed to proceed given the understanding of these risks. [facility]:paxton Job ID: [id number] Doc ID: [id number] Jeramie Morrow MD
[2021-07-23] MEDS: 0.45 % SODIUM CHLORIDE 1,000 ML IV SCH ×2 (20:12→20:13)
[2021-07-23] MEDS ORDERED: DOCUSATE SODIUM 100 MG CAPSULE PO SCH (21:00)
[2021-07-23] MEDS ORDERED: SENNOSIDES 1 TABLET PO SCH (21:00)
--- NOTE | 2021-07-23 21:11 | EKG ---
[facility] Test Date: 2021-07-21 Pat Name: Kateryna Oconnor Department: ED Room: Gender: Female Cow Tester: sb : 1935 Requested By: John Dominguez Order Number: [id number] Reading MD: Christian Gallegos Measurements Intervals [place] Rate: 67 P: 20 RI: 172 QRS: -8 QRSD: 88 T: 42 QT: 427 QTc: 451 Interpretive Statements Sinus rhythm Abnormal R-wave progression, early transition Baseline wander in lead(s) V2 Electronically Signed On 07-23-2021 21:11:13 PST by Christian Gallegos /store/M0/[id number]/[email or web address]/[id number]
[2021-07-23] MEDS: ASPIRIN 81 MG TAB.CHEW PO SCH (21:48)
[2021-07-23] MEDS: SIMVASTATIN 40 MG TABLET PO SCH (21:48)
[2021-07-23] MEDS: DONEPEZIL 10 MG TABLET PO SCH (21:48)
[2021-07-23] MEDS: SENNOSIDES 1 TABLET PO SCH (21:54)
[2021-07-23] MEDS: ceFAZolin 1 GM VIAL IV SCH (22:03)
[2021-07-23] MEDS ORDERED: ceFAZolin 1 GM VIAL ONE (22:04)
[2021-07-24] MEDS: 0.45 % SODIUM CHLORIDE 1,000 ML IV SCH (05:13)
[2021-07-24] MEDS: 0.9 % SODIUM CHLORIDE 10 ML SYRINGE IV SCH (05:13)
[2021-07-24] MEDS: ceFAZolin 1 GM VIAL IV SCH (06:05)
[2021-07-24] MEDS: OMEPRAZOLE 20 MG CAPSULE PO SCH (07:41)
--- NOTE | 2021-07-24 07:53 | Orthopedic Progress Note ---
SUBJECTIVE Subjective Patient information: Note initiated : 07/24/21 at 7:49 am Service Date, if different from initiated Date: [] Patient: Kateryna Oconnor 85 y/o F admitted on 07/21/21 for syncope, right knee pain. Chief Complaint: [weak foot extension] Principal diagnosis: right supracondylar femur fx orif Constitutional Vitals: Vital Signs Temp Pulse Resp BP Pulse Ox 97.6 F 73 12 128/57 94 07/24/21 04:20 07/24/21 04:20 07/24/21 04:20 07/24/21 04:20 07/24/21 04:20 Period Temp Pulse Resp BP Sys/Springer Pulse Ox Last 24 Hr 96.9 F-99.6 F 59-80 10- 94-136/40-57 90-99 Intake and Output 07/23/21 07/24/21 07/24/21 21:59 05:59 13:59 Intake Total 2677 200 Output Total 1350 450 Balance 1327 -250 Weight 138 lb 1.6 oz Intake & Output: Intake & Output 07/23/21 07/24/21 07/24/21 21:59 05:59 13:59 Intake Total 2677 200 Output Total 1350 450 Balance 1327 -250 Weight 138 lb 1.6 oz Intake: IV 1177 Sodium Chloride 0.9% 1,000 ml @ 522 100 mls/hr IV .Q10H [facility] Rx#: [id number] Potassium Chloride 40 Meq In 520 Dextrose 5% in Water 500 ml @ 130 mls/hr IV ONCE ONE Rx#: [id number] Ancef 2 gm In Dextrose 5% in 50 Water 50 ml @ 100 mls/hr IV [facility] Rx#:[id number] Oral 200 IV - Manual Only 1500 Output: Urine Catheter Amount 1300 450 Estimated Blood Loss 50 Other: Meal jello Percent of Meal Consumed 100% Feeding Ability Independent Urine Appearance Clear Clear Uretheral (Villagomez) Clear Urine Color Pale Bright Yellow Uretheral (Villagomez) Bright Yellow Urine Odor Strong General appearance: no acute distress and thin Head Head exam: Present atraumatic Neck Neck exam: Present normal inspection Neurological Exam Neurological exam: Present alert, motor sensory deficit and oriented X3 Additional comments: right foot drop wiht normal sensation but may have been present prior to surgery OBJ DATA Labs CBC & Chem 7: 07/23/21 05:25 07/23/21 05:25 Labs: Abnormal Lab Results 07/23/21 07/23/21 07/23/21 12:59 05:25 05:25 Hgb 10.9 L Hct 33.4 L [place] # (Auto) 0.99 H Potassium 3.1 L Anion Gap 7.0 L BUN 5 L Glucose Calcium 8.2 L Magnesium Total Protein 5.4 L Albumin 3.0 L Ur Leukocyte Esterase 75 A Urine WBC 5 H Urine Bacteria Few A Urine Mucus Few A 07/22/21 07/22/21 07/21/21 05:54 05:54 14:02 Hgb Hct [place] # (Auto) 0.98 H Potassium Anion Gap BUN Glucose 107 H 113 H Calcium 8.5 L Magnesium 1.5 L Total Protein 5.7 L Albumin Ur Leukocyte Esterase Urine WBC Urine Bacteria Urine Mucus Meds: Medications Acetaminophen (Acetaminophen 325 Mg Tablet) 650 mg PO Q6HP PRN; Protocol PRN Reason: Per Pain Protocol/Fever > 101 Last Admin: 07/23/21 00:16 Dose: 650 mg Documented by: Hydrocodone Bitart/Acetaminophen (Hydrocodone/Apap 5/325mg Tablet) 1 - 2 tab PO Q4HP PRN; Protocol PRN Reason: Per Pain Protocol Albuterol/Ipratropium (Ipratropium/Albuterol 3 Ml Ampul.Neb) 3 ml NEB Q4HP PRN PRN Reason: Wheezing Alendronate Sodium (Alendronate Sodium 70 Mg Tablet) 70 mg PO Mo@0730 [facility] Aspirin (Aspirin 81 Mg Tab.Chew) 81 mg PO BID [facility] Last Admin: 07/23/21 21:48 Dose: 81 mg Documented by: Bisacodyl (Bisacodyl 10 Mg Supp.Rect) 10 mg [place] Q2-3DAYS PRN PRN Reason: Constipation Calcium/Vitamin D (Calcium W/Vit D3 500 Mg Tablet) 1 mg PO DAILY [facility] Last Admin: 07/23/21 08:37 Dose: Not Given Documented by: Docusate Sodium (Docusate Sodium 100 Mg Capsule) 100 mg PO BID [facility] Last Admin: 07/23/21 21:48 Dose: 100 mg Documented by: Donepezil HCl (Donepezil 10 Mg Tablet) 5 mg PO QHS [facility] Last Admin: 07/23/21 21:48 Dose: 5 mg Documented by: Gabapentin (Gabapentin 100 Mg Capsule) 100 mg PO TID [facility] Last Admin: 07/23/21 21:48 Dose: 100 mg Documented by: Hydromorphone HCl (Hydromorphone 1 Mg/Ml Syringe) 0.5 - 2 mg IV Q2HP PRN; Pro tocol PRN Reason: Per Pain Protocol Sodium Chloride (Sodium Chloride 0.45%) 1,000 mls @ 100 mls/hr IV .Q10H [facility] Last Admin: 07/24/21 05:13 Dose: Not Given Documented by: Indapamide (Indapamide 2.5 Mg Tablet) 2.5 mg PO QAM [facility] Last Admin: 07/23/21 08:37 Dose: Not Given Documented by: Iron Carb/Multivit/[place]/Folic Acid (Multivit,Ther Iron,Ca,Fa & Min 1 Tablet) 1 tab PO DAILY [facility] Last Admin: 07/23/21 08:38 Dose: Not Given Documented by: Magnesium Hydroxide (Magnesium Hydroxide 30 Ml Oral.Susp) 30 ml PO BIDP PRN PRN Reason: Constipation Memantine (Memantine 10 Mg Tablet) 5 mg PO QAM [facility] Last Admin: 07/23/21 08:38 Dose: Not Given Documented by: Omeprazole (Om[facility] 20 Mg Capsule) [facility] Last Admin: 07/24/21 07:41 Dose: 20 mg Documented by: Ondansetron HCl (Ondansetron 4 Mg/2 Ml Vial) 4 mg IV Q4HP PRN PRN Reason: Nausea And Vomiting Oxybutynin Chloride (Oxybutynin Chloride 5 Mg Tablet) 5 mg PO QDAY [facility] Last Admin: 07/23/21 08:37 Dose: Not Given Documented by: Polyethylene Glycol (Polyethylene Glycol 3350 17 Gm Packet) 17 gm PO DAILYP PRN PRN Reason: Constipation Senna (Sennosides 1 Tablet) 2 tab PO HS [facility] Last Admin: 07/23/21 21:54 Dose: 2 tab Documented by: Simvastatin (Simvastatin 40 Mg Tablet) 40 mg PO QPM [facility] Last Admin: 07/23/21 21:48 Dose: 40 mg Documented by: Sodium Chloride (0.9 % Sodium Chloride 10 Ml Syringe) 10 ml IV Q8 [facility] Last Admin: 07/24/21 05:13 Dose: Not Given Documented by: Temazepam (Temazepam 15 Mg Capsule) 15 mg PO HSP PRN PRN Reason: Insomnia Throat Lozenges (Benzocaine/Menthol 1 Lozenge) 1 lozenge PO PRN PRN PRN Reason: Sore Throat Tramadol HCl (Tramadol 50 Mg Tablet) 50 mg PO Q8HP PRN; Protocol PRN Reason: Pain A/P Narrative A/P Narrative: plan to dc to home with home health or rehab is the husbands wishes Time Spent With Patient Time: Total time spent is greater than 50% in coordination of care (as documented) at patient's floor/unit and/or counseling patient: Total time spent with greater than 50% in coordination of care (as documented) at patient's floor/unit and/or counseling patient:: less than 15 minutes
[2021-07-24 08:30] LABS: Basophils # (Auto) 0.05 K/mcL (0.00-0.30); Basophils % (Auto) 0.5 % (0.0-2.0); Eosinophils # (Auto) 0.17 K/mcL (0.00-0.70); Eosinophils % (Auto) 1.6 % (0.0-7.0); Hematocrit 32.6 % (34.1-44.9); Hemoglobin 10.5 g/dL (11.2-15.7); Lymphocytes # (Auto) 0.99 K/mcL (1.50-4.80); Lymphocytes % (Auto) 9.4 % (15.5-49.0); Mean Cell Volume 92.4 fL (80.0-100.0); Mean Corpuscular HGB Conc 32.2 g/dL (31.0-36.0); Mean Platelet Volume 8.9 fL (7.4-10.4); Monocytes % (Auto) 10.5 % (1.0-12.0); Platelet Count 235 K/mcL (140-440); RBC 3.53 M/mcL (3.59-5.38); Red Cell Distribution Width 12.2 % (11.5-14.5); WBC 10.5 K/mcL (4.5-11.0)
[2021-07-24 08:51] LABS: ALT/SGPT 8 U/L (<40); AST/SGOT 17 U/L (<32); Albumin 3.1 gm/dL (3.2-5.2); Albumin/Globulin Ratio 1.2 (1.0-2.3); Alkaline Phosphatase 65 U/L (39-117); Bilirubin,Total 0.6 mg/dL (0.1-1.0); Blood Urea Nitrogen 3 mg/dL (8-23); Calcium 8.3 mg/dL (8.6-10.4); Carbon Dioxide 28 mmol/L (22-30); Chloride 101 mmol/L (96-108); Globulin 2.6 gm/dL (2.2-3.7); Glomerular Filtration Rate 87; Glucose 97 mg/dL (70-105)
[2021-07-24] MEDS: CALCIUM W/VIT D3 500 MG TABLET PO SCH (08:52)
[2021-07-24] MEDS: DOCUSATE SODIUM 100 MG CAPSULE PO SCH (08:52)
[2021-07-24] MEDS: GABAPENTIN 100 MG CAPSULE PO SCH (08:53)
[2021-07-24] MEDS: OXYBUTYNIN CHLORIDE 5 MG TABLET PO SCH (08:53)
[2021-07-24] MEDS: MULTIVIT,THER IRON,CA,FA & MIN 1 TABLET PO SCH (08:53)
[2021-07-24] MEDS: INDAPAMIDE 2.5 MG TABLET PO SCH (08:53)
[2021-07-24] MEDS: ASPIRIN 81 MG TAB.CHEW PO SCH (08:53)
[2021-07-24] MEDS: MEMANTINE 10 MG TABLET PO SCH (08:53)
--- NOTE | 2021-07-24 09:15 | Operative Note ---
DATE OF OPERATION: 07/23/2021 PREOPERATIVE DIAGNOSES: Periprosthetic supracondylar femur fracture of the right side with severe comminution of osteopenic bone. POSTOPERATIVE DIAGNOSES: Periprosthetic supracondylar femur fracture of the right side with severe comminution of osteopenic bone. PROCEDURE: Open reduction and internal fixation of the distal femur fracture and complete revision of two components of the total knee arthroplasty. SURGEON: Jeramie Morrow M.D. [employer] S[employer]OL PSYCHOLOGIST: Ruddy Mae PA-C. The PA's assistance was required for the safe and efficient completion of the entire case. This provider's expertise and technical skill were required throughout the case. The PA assisted with preoperative coordination, intraoperative retraction, wound closure, dressing and splint application, as well as postoperative documentation and care coordination. ANESTHESIA: General LMA anesthesia. COMPLICATIONS: None. TOURNIQUET TIME: 51 minutes. ESTIMATED BLOOD LOSS: 20 mL. IMPLANTS: Tumor prosthesis from [employer] with a 12 mm poly, 41 mm augment with the small femoral component with a porous ingrowth. COMPLICATIONS: None. DESCRIPTION OF PROCEDURE: The patient was brought to the operating room, put to sleep with general LMA anesthesia. Once asleep, the right leg was sterilely prepped and draped and Ioban placed over the skin. A midline incision, a midvastus approach was performed. Through this, we evaluated all the structures of the knee and this did reveal a very comminuted distal femur fracture. At this point, because of the severity of the comminution, we removed the distal femoral component and bony fragments. Once this was, we removed the tibial baseplate. We then cut perpendicular to the distal femur and measured total length. Once we had measured this, we reamed up to the size of 16. A 16 implant was placed. Two cables were placed on the distal femur to prevent fracturing and tension to 40 pounds of pressure. Once we broached up, we set rotation of the femoral component for the patellar tracking. Once this was done, we then adjusted the length from a standard to a +10 augment on the femoral component and re-placed a 12 mm poly distally. This seemed to fit very nicely. We then placed the cementless components into place. These were broached into place and we retensioned the cables. They were cut into place and then we placed the +10 augment on the distal femoral component for the small femur. This was reduced into the rotating platform on the tibia and then a locking pin to set the hinge was put into place. We took the knee through range of motion and deflated the tourniquet, controlled any bleeding. There was no severe bleeding. We checked the skin to make sure there was good perfusion into the foot, which there was. We irrigated thoroughly and then thoroughly irrigated and then closed the fracture with a Stratafix x2, closed the skin with Stratafix and 2-0 Vicryl and brendan for the skin. The patient tolerated this well. Tourniquet was deflated at 51 minutes. There were no complications. Preoperative antibiotics confirmed given and tranexamic acid given. Implants were as noted. [facility]:sagar Job ID: [id number] Doc ID: [id number] Jeramie Morrow MD
[2021-07-24] MEDS: ACETAMINOPHEN 325 MG TABLET PO PRN (10:25)
--- NOTE | 2021-07-24 11:43 | Discharge Summary ---
Discharge Provider Provider Patient information: Note initiated : 07/24/21 at 11:39 am Service Date, if different from initiated Date: [] Patient: Kateryna Oconnor 85 y/o F admitted on 07/21/21 for syncope, right knee pain. Chief Complaint: [] Date of admission: 07/21/21 18:03 Discharge date: 07/24/21 Primary care physician: Mavis Crowder DO Consults: 07/21/21 Consult to Physician [CONS] Stat Comment: Consulting Provider: Joshua Knutson Reason For Exam: Physician to Consult Consult to Physician [CONS] Stat Comment: Consulting Provider: Prashant Morton Reason For Exam: Physician to Consult 07/22/21 07:42 Consult to Physician [CONS] Routine Comment: snf referral Consulting Provider: [facility] Reason For Exam: Physician to Consult Discharge Meds Discharge Medications Home Medications multivitamin 1 each PO DAILY 11/25/17 [History Confirmed 07/21/21 Last Taken 07/21/21 10:00] memantine 5 mg tablet (Namenda) 5 mg PO QAM #90 tab 02/10/21 [Rx Confirmed 07/21/21 Last Taken 07/21/21 10:00] donepezil 5 mg tablet 5 mg PO QHS #90 tab 05/23/21 [Rx Confirmed 07/21/21 Last Taken 07/20/21 19:00] indapamide 2.5 mg tablet 2.5 mg PO QAM #90 tab 05/23/21 [Rx Confirmed 07/21/21 Last Taken 07/21/21 10:00] omeprazole 20 mg capsule,delayed release 20 mg PO QAM #90 cap 05/23/21 [Rx Confirmed 07/21/21 Last Taken 07/21/21 10:00] oxybutynin chloride 5 mg tablet 5 mg PO QDAY #90 tab 05/23/21 [Rx Confirmed 07/21/21 Last Taken 07/21/21 10:00] simvastatin 40 mg tablet 40 mg PO QPM #90 tab 05/23/21 [Rx Confirmed 07/21/21 Last Taken 07/20/21 19:00] alendronate 70 mg tablet (Fosamax) 70 mg PO QWEEK #14 tab 05/26/21 [Rx Confirmed 07/21/21 Last Taken 07/21/21 10:00] aspirin 81 mg tablet,delayed release (Ecotrin Low Strength) 81 mg PO BID #60 tab 07/23/21 [Rx Last Taken Unknown] docusate sodium 100 mg capsule 100 mg PO BID #60 cap 07/23/21 [Rx Last Taken Unknown] hydrocodone 5 mg-acetaminophen 325 mg tablet 1 - 2 tab PO Q4H PRN #30 tab 07/23/21 [Rx Last Taken Unknown] COURSE Hospital Course Hospital course: Discharge diagnosis 1. Right distal femoral periprosthetic fracture, closed and displaced: POD 1. Continue postop management per orthopedics. PT OT at [facility] 2. Dementia: Baseline 3. GERD: 4. Overactive bladder: 5. Mixed dyslipidemia: 6. Osteoporosis: Brief hospital course Ms. Oconnor is a 85 year old F history of dementia, overactive bladder, mixed dyslipidemia, GERD, status post right knee total arthroplasty, presenting with fall with resultant right knee fractures. Earlier this morning at 11 AM, when patient was ambulating in the house preparing for lunch, she felt dizzy with lightheadedness and she fell and landed on her right knee. She denies any loss of consciousness. She denies any confusions or lethargy. She denies any chest pain or palpitations. She denies any headaches. She denies any shortness of breath. She denies any incontinences. She is currently company of 3 out of 10 cramping constant pain of her right knee. Vital signs within normal limits. Labs also largely within normal limits. WBC 9.2. Troponin less than 0.01. Right knee x-ray showing previous right total knee arthroplasty, together with mildly displaced and posteriorly angulated periprosthetic distal right femoral fracture. 07/22: No major overnight events. Denies any right thigh pain. Been NPO since midnight. Pending surgery today. 07/23: Surgery did not happen yesterday due to parts unavailability. Surgery scheduled for today afternoon 07/24-patient doing a lot better. Postop day 1. Pain good control. [facility] continued post[facility] and postoperative rehab. Discharge diagnosis: Right hip fracture Time Spent with Patient Time attestation: Total time spent providing and/or coordinating discharge services: EXAM Constitutional Vitals: Temp Pulse Resp BP Pulse Ox 97.3 F 90 16 129/60 93 07/24/21 08:00 12/02/21 08:00 07/24/21 08:00 07/24/21 08:00 07/24/21 08:00 Discharge Data Data Completed and Pending Labs on day of discharge: Labs from last 24 hours 07/24/21 07/24/21 07/23/21 05:30 05:30 12:59 WBC 10.5 RBC 3.53 L Hgb 10.5 L Hct 32.6 L MCV 92.4 MCH 29.7 MCHC 32.2 RDW 12.2 Plt Count 235 MPV 8.9 Neut % (Auto) 78.0 Lymph % (Auto) 9.4 L Harrison % (Auto) 10.5 Eos % (Auto) 1.6 Baso % (Auto) 0.5 Lymph # (Auto) 0.99 L Harrison # (Auto) 1.10 H Eos # (Auto) 0.17 Baso # (Auto) 0.05 Absolute Neutrophils 8.17 H Sodium 138 Potassium 3.5 Chloride 101 Carbon Dioxide 28 Anion Gap 9.0 BUN 3 L Creatinine 0.5 L GFR Calculation 87 Glucose 97 Calcium 8.3 L Magnesium 2.2 Total Bilirubin 0.6 AST 17 ALT 8 Alkaline Phosphatase 65 Total Protein 5.7 L Albumin 3.1 L Globulin 2.6 Albumin/Globulin Ratio 1.2 Urine Color Yellow Urine Appearance Clear Urine pH 5.0 Ur Specific [place] 1.010 Urine Protein Negative Urine Glucose (UA) Negative Urine Ketones Negative Urine Occult Blood Negative Urine Nitrate Negative Urine Bilirubin Negative Urine Urobilinogen Negative Ur Leukocyte Esterase 75 A Urine RBC < 1 Urine WBC 5 H Ur Squamous Epith Cells < 1 Urine Bacteria Few A Urine Mucus Few A Ur Culture Indicated? Yes Discharge Plan Patient/Caregiver Discharge Instructions Activity: ambulate only with your walker Diet: Regular Diet Prescriptions: New hydrocodone-acetaminophen 5-325 mg Tablet 1 - 2 tab PO Q4H PRN (Reason: Pain) Qty: 30 0RF aspirin [Ecotrin Low Strength] 81 mg tablet,delayed release (DR/EC) 81 mg PO BID Qty: 60 0RF docusate sodium 100 mg capsule 100 mg PO BID Qty: 60 0RF Continued memantine [Namenda] 5 mg tablet 5 mg PO QAM Qty: 90 1RF oxybutynin chloride 5 mg tablet 5 mg PO QDAY Qty: 90 0RF indapamide 2.5 mg tablet 2.5 mg PO QAM Qty: 90 0RF donepezil 5 mg tablet 5 mg PO QHS Qty: 90 0RF simvastatin 40 mg tablet 40 mg PO QPM Qty: 90 0RF omeprazole 20 mg capsule,delayed release(DR/EC) 20 mg PO QAM Qty: 90 0RF Rx Instructions: TAKE BEFORE BREAKFAST FOR STOMACH ISSUE alendronate [Fosamax] 70 mg tablet 70 mg PO QWEEK Qty: 14 2RF multivitamin 1 EACH tablet 1 each PO DAILY 0RF Other Ambulatory Orders: Wound Care Instructions (CONT) Location: None Selected Ordered By: Jeramie Morrow Physical Therapy DC - TKA (Routine) Location: None Selected Ordered By: Ruddy Mae Toilet Riser Discharge Order (ONCE) Location: None Selected Ordered By: Ruddy Mae Walker (ONCE) Location: None Selected Ordered By: Ruddy Mae Follow Up Plan Follow up with: Mavis Crowder DO [Primary Care Provider] - Patient Disposition: Xfer SNF Prognosis: Fair Rehab Potential: Fair I certify that the patient requires SNF services: Yes Overall status at discharge: patient is progressing back to baseline Discharge Orders: Discharge Order (Routine); Ordered 07/24/21 Ordered By: Ruddy Mae Discharge Comment: When cleared Medically by Hospitalist QUALITY VTE Deep Vein Thrombosis/Pulmonary Embolism Present on Admission: No
[2021-07-28] MEDS ORDERED: ALENDRONATE SODIUM 70 MG TABLET PO SCH (07:30)
== END 2021-07-24 13:35 | DRG 467 ==
LOC: ED 12:19 → MEDSUR 18:03
PROVIDERS: ADMIT Internal Medicine; ATTEND Internal Medicine

== ENCOUNTER 2024-03-13 15:00 | Observation (INO) ==
[2024-03-13] MEDS ORDERED: IOPAMIDOL 100 ML BOTTLE IV ONE (15:01)
[2024-03-13 16:00] LABS: Basophils # (Auto) 0.03 K/mcL (0.00-0.30); Basophils % (Auto) 0.2 % (0.0-2.0); Eosinophils # (Auto) 0 K/mcL (0.00-0.70); Eosinophils % (Auto) 0 % (0.0-7.0); Hematocrit 37.7 % (34.1-44.9); Hemoglobin 12.4 g/dL (11.2-15.7); Lymphocytes # (Auto) 0.58 K/mcL (1.50-4.80); Lymphocytes % (Auto) 3.6 % (15.5-49.0); Mean Cell Volume 92.9 fL (80.0-100.0); Mean Corpuscular HGB Conc 32.9 g/dL (31.0-36.0); Mean Platelet Volume 8.4 fL (8.8-12.5); Monocytes # (Auto) 0.86 K/mcL (0.10-0.90); Monocytes % (Auto) 5.3 % (1.0-12.0); Neutrophils % (Auto) 90.7 % (38.0-78.0); Platelet Count 439 K/mcL (140-440); RBC 4.06 M/mcL (3.59-5.38); Red Cell Distribution Width 12.5 % (11.5-14.5); WBC 16.2 K/mcL (4.5-11.0)
[2024-03-13 16:15] LABS: ALT/SGPT 6 U/L (<40); AST/SGOT 36 U/L (<32); Albumin 3.5 gm/dL (3.2-5.2); Albumin/Globulin Ratio 1.1 (1.0-2.3); Alkaline Phosphatase 62 U/L (39-117); Bilirubin,Total 0.6 mg/dL (0.1-1.0); Blood Urea Nitrogen 14 mg/dL (8-23); Calcium 10.7 mg/dL (8.6-10.4); Carbon Dioxide 27 mmol/L (22-30); Chloride 102 mmol/L (96-108); Globulin 3.2 gm/dL (2.2-3.7); Glomerular Filtration Rate 81; Glucose 176 mg/dL (70-105); Potassium 4.5 mmol/L (3.3-5.1); Sodium 139 mmol/L (133-145)
[2024-03-13] MEDS: cefTRIAXone 1 GM VIAL IV ONE (16:15)
[2024-03-13] MEDS: 0.9 % SODIUM CHLORIDE 500 ML IV ONE ×2 (16:15→17:32)
[2024-03-13 16:31] LABS: Prothrombin Time 14.2 sec (11.9-14.5)
[2024-03-13 16:34] LABS: Appearance,Urine CLOUDY (Clear); Bilirubin,Urine Negative (Negative); Color,Urine Red; Culture Indicated,Urine Yes; Glucose,Urine (UA) Negative (Negative); Ketones,Urine Negative (Negative); Leukocyte Esterase,Urine Negative /uL (Negative); Nitrate,Urine Negative (Negative); Protein,Urine >=500 mg/dL (Negative); Specific Gravity,Urine 1.028 (1.000-1.035); Urine Blood >1.0 mg/dL (Negative); Urine RBC > 182 /hpf (0-1); Urine Squamous Epithelial Cell 0 /hpf (0-4); Urine WBC > 182 /hpf (0-4); Urobilinogen,Urine Negative
[2024-03-13 19:16] LABS: Hematocrit 34.1 % (34.1-44.9); Hemoglobin 11.1 g/dL (11.2-15.7)
[2024-03-13] MEDS ORDERED: IPRATROPIUM/ALBUTEROL 3 ML AMPUL.NEB NEB PRN (21:54)
[2024-03-13] MEDS ORDERED: ONDANSETRON 4 MG/2 ML VIAL IV PRN (21:54)
[2024-03-13] MEDS: 0.9 % SODIUM CHLORIDE 1,000 ML IV SCH (23:29)
[2024-03-13] MEDS: AZITHROMYCIN 500 MG in DEXTROSE 5% IN WATER 250 ML IV SCH (23:29)
[2024-03-13] MEDS: 0.9 % SODIUM CHLORIDE 10 ML SYRINGE IV SCH (23:30)
[2024-03-14 06:38] LABS: Basophils # (Auto) 0.06 K/mcL (0.00-0.30); Basophils % (Auto) 0.4 % (0.0-2.0); Eosinophils # (Auto) 0.03 K/mcL (0.00-0.70); Eosinophils % (Auto) 0.2 % (0.0-7.0); Hematocrit 31.9 % (34.1-44.9); Hemoglobin 10.5 g/dL (11.2-15.7); Lymphocytes # (Auto) 1.81 K/mcL (1.50-4.80); Lymphocytes % (Auto) 11.9 % (15.5-49.0); Mean Cell Volume 93.8 fL (80.0-100.0); Mean Corpuscular HGB Conc 32.9 g/dL (31.0-36.0); Mean Platelet Volume 8.7 fL (8.8-12.5); Monocytes % (Auto) 5.9 % (1.0-12.0); Neutrophils % (Auto) 81.4 % (38.0-78.0); Platelet Count 365 K/mcL (140-440); Red Cell Distribution Width 12.6 % (11.5-14.5); WBC 15.3 K/mcL (4.5-11.0)
[2024-03-14 07:09] LABS: ALT/SGPT 7 U/L (<40); AST/SGOT 53 U/L (<32); Albumin/Globulin Ratio 1.2 (1.0-2.3); Alkaline Phosphatase 53 U/L (39-117); Bilirubin,Total 0.4 mg/dL (0.1-1.0); Blood Urea Nitrogen 10 mg/dL (8-23); Calcium 9.3 mg/dL (8.6-10.4); Carbon Dioxide 23 mmol/L (22-30); Chloride 106 mmol/L (96-108); Globulin 2.6 gm/dL (2.2-3.7); Glomerular Filtration Rate 92; Glucose 107 mg/dL (70-105); Potassium 3.4 mmol/L (3.3-5.1); Sodium 139 mmol/L (133-145)
[2024-03-14] MEDS: OMEPRAZOLE 20 MG CAPSULE PO SCH (09:03)
[2024-03-14] MEDS: DONEPEZIL 10 MG TABLET PO SCH (10:07)
[2024-03-14] MEDS: DOCUSATE SODIUM 100 MG CAPSULE PO SCH (10:08)
[2024-03-14] MEDS: LISINOPRIL 5 MG TABLET PO SCH (10:08)
[2024-03-14] MEDS: OXYBUTYNIN CHLORIDE 5 MG TABLET PO SCH (10:08)
[2024-03-14] MEDS: CILOSTAZOL 100 MG TABLET PO SCH (10:08)
[2024-03-14] MEDS: ACETAMINOPHEN 325 MG TABLET PO PRN (10:09)
[2024-03-14] MEDS: cefTRIAXone 1 GM VIAL IV SCH (10:21)
[2024-03-14] MEDS: SENNOSIDES 1 TABLET PO SCH (20:26)
[2024-03-15 06:37] LABS: Basophils # (Auto) 0.06 K/mcL (0.00-0.30); Basophils % (Auto) 0.5 % (0.0-2.0); Eosinophils # (Auto) 0.35 K/mcL (0.00-0.70); Eosinophils % (Auto) 3.2 % (0.0-7.0); Hematocrit 29.9 % (34.1-44.9); Hemoglobin 9.7 g/dL (11.2-15.7); Lymphocytes # (Auto) 2.05 K/mcL (1.50-4.80); Lymphocytes % (Auto) 18.6 % (15.5-49.0); Mean Cell Volume 94.9 fL (80.0-100.0); Mean Corpuscular HGB Conc 32.4 g/dL (31.0-36.0); Mean Platelet Volume 8.6 fL (8.8-12.5); Monocytes # (Auto) 0.85 K/mcL (0.10-0.90); Monocytes % (Auto) 7.7 % (1.0-12.0); Neutrophils % (Auto) 69.9 % (38.0-78.0); Platelet Count 332 K/mcL (140-440); RBC 3.15 M/mcL (3.59-5.38); Red Cell Distribution Width 12.7 % (11.5-14.5)
[2024-03-15 07:05] LABS: ALT/SGPT 8 U/L (<40); AST/SGOT 43 U/L (<32); Albumin 2.7 gm/dL (3.2-5.2); Albumin/Globulin Ratio 1.2 (1.0-2.3); Alkaline Phosphatase 51 U/L (39-117); Bilirubin,Total 0.3 mg/dL (0.1-1.0); Blood Urea Nitrogen 6 mg/dL (8-23); Calcium 8.5 mg/dL (8.6-10.4); Carbon Dioxide 22 mmol/L (22-30); Chloride 108 mmol/L (96-108); Globulin 2.2 gm/dL (2.2-3.7); Glomerular Filtration Rate 101; Glucose 82 mg/dL (70-105); Potassium 3.4 mmol/L (3.3-5.1); Sodium 137 mmol/L (133-145)
== END 2024-03-15 10:45 ==
LOC: ED 15:00 → MEDSUR 15:00
PROVIDERS: ADMIT Internal Medicine; ATTEND Internal Medicine